=== PATIENT | female | born 1960 | race Caucasian/White ===

== ENCOUNTER 2024-04-06 17:09 | Emergency (ER) | payer OTHER, SELFPAY ==
--- NOTE | ~2024-04-06 | US_ITS ---
EXAMINATION: US TRIPLEX LOWER EXTREMITY, RIGHT CLINICAL INFORMATION: Pain and swelling of right leg COMPARISON: None available. TECHNIQUE: Color-flow triplex imaging with spectral analysis and compression Doppler were performed on the right lower extremity. FINDINGS: Respiratory variation, normal compression and augmented flow are noted throughout the right lower extremity. The visualized common femoral vein, superficial femoral vein, profunda femoral vein, popliteal vein and midcalf peroneal and posterior tibial venous segments show no evidence of deep venous thrombosis. There is no Lewis's cyst. US/US venous duplex LE RT IMPRESSION: No evidence of deep venous thrombosis involving the right lower extremity. Electronically signed by: Best Mendoza MD 04/06/2024 08:22 PM EDT
[2024-04-06 17:22] VITALS: BP 131/79; PULSE 72; RESP 18; TEMP 37.3; O2SAT 97; BMI 25.1
--- NOTE | 2024-04-06 17:22 | ED.GENADULT ---
HPI - General Adult General Chief complaint: General Medical Stated complaint: ? clot right leg swelling/redness Time Seen by Provider: 04/06/24 19:54 Source: patient, RN notes reviewed and old records reviewed Mode of arrival: ambulatory Limitations: no limitations History of Present Illness ED Provider: Tre LOPEZ narrative: 63-year-old female presents for evaluation of right leg swelling. Patient reports she has noticed pain to the area since Tuesday. The pain started the day after she [place] ? She denies any specific injury. 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 Related Data Allergies Allergy/AdvReac Type Severity Reaction Status Date / Time No Known Allergies Allergy Verified 04/06/24 17:25 Review of Systems Constitutional: Constitutional: Denies body ache(s), Denies chills, Denies fever(s) and Denies frequent falls Eyes: Eyes: Denies blurry vision ENT: Denies vertigo and Denies dizziness Cardiovascular: Cardiovascular: Denies chest pain, Reports leg edema and Denies dyspnea Respiratory: Respiratory: Denies cough and Denies dyspnea Gastrointestinal: Gastrointestinal: Denies abdominal pain, Denies nausea and Denies vomiting Musculoskeletal: Musculoskeletal: Denies back pain Integumentary/Breasts: Skin/Breast: Denies erythema and Denies rash Neurologic: Denies vertigo, Denies dizziness and Denies frequent falls [facility] Social History Social History (System 04/12/23 @ 15:19 by Ivonne Calderón) Alcohol intake: current Alcohol intake frequency: 0-2 drinks per day Smoked in Last 30 Days: No Use of substances other than those prescribed or required for medical reasons: No Advance Directives: No Advance Directives Information Provided: No Do you have a plan to hurt others: No Plan Physical Exam ED Vital Signs: Vital Signs - 24 hr 04/06/24 17:22 04/06/24 20:11 Temperature 99.2 F 99.2 F Pulse Rate 72 72 Respiratory Rate 18 18 Blood Pressure 131/79 136/78 Pulse Oximetry 97 98 Oxygen Delivery Method Room Air Room Air BMI result Body Mass Index 25.1 Const General: healthy appearing, comfortable, no acute distress, alert and awake Nutritional Appearance: well nourished Orientation/consciousness: patient oriented x3 HENMT Head: Yes normocephalic and Yes atraumatic Eyes Eyelids: Yes eyelids normal Conjunctivae: conjunctivae normal Sclerae: sclerae normal Corneas: corneas normal Pupils: Equal, round and reactive pupils present EOM: EOMs intact bilaterally Neck Neck: Yes full ROM Resp Effort & Inspection: normal respiratory effort, able to speak in complete sentences and not labored Skin General skin exam: elasticity normal Neuro General: patient oriented x3 Cranial nerves: Yes Equal, round and reactive pupils present and Yes Bilaterally intact EOM present Cognition (Neuro): normal cognition Extrem Other: Patient has 1 to 2+ nonpitting edema to the right lower extremity. There is no significant erythema, no wounds, no rashes. The right lower extremity is warm to palpation. Distal sensation and capillary refill intact. DP and PT pulses 2+ and equal Course Course Course Narrative: This is a rapid medical exam performed by Marshall Gale NP: Additional HPI, ROS, PE not included below will be deferred to primary provider. Patient is a 63-year-old female presenting with complaint of right calf pain and swelling. Denies chest pain or dyspnea. Referred by to r/o DVT. Plan: labs, U/S Medical Decision Making Medical Decision Making [facility] Narrative: 63-year-old female presents for evaluation of right leg swelling. She denies any trauma, she has no history of DVT or PE, no rashes, redness to suggest infectious cause. She had labs ordered that did not show any significant abnormalities, there was no white count or left shift. No significant chemistry abnormalities to explain her swelling. Ultrasound is negative for DVT on right. At this time, musculoskeletal injuries the most likely cause of her swelling. She will be discharged with instructions to elevate the leg and follow up with her primary doctor Differential Diagnosis Differential Diagnoses: The differential diagnosis associated with the presentation includes Right leg swelling DVT Cellulitis Peripheral edema Hypovolemia Lab Data [facility] Lab Attestation statement: I reviewed the patient's lab results. See above 04/06/24 17:39 04/06/24 17:39 Labs: Lab Results 04/06/24 Range/Units 17:39 WBC 6.0 (4.8-10.8) X10*3/uL RBC 4.42 (4.20-5.50) X10*6/uL Hgb 13.9 (12.0-16.0) g/dl Hct 40.0 (37.0-47.0) % MCV 90.5 (80.0-98.0) fL MCH 31.4 (27.0-33.0) pg MCHC 34.8 (31.0-35.0) g/dl RDW 12.6 (11.0-16.0) % Plt Count 217 (160-400) X10*3/uL MPV 11.1 (9.4-12.3) fL Immature Gran % (Auto) 0.2 (0.0-0.4) % Neut % (Auto) 63.5 (45-73) % Lymph % (Auto) 22.5 (20-40) % Greer % (Auto) 12.8 H (2-11) % Eos % (Auto) 0.3 (0-4) % Baso % (Auto) 0.7 (0-2) % Lymph # (Auto) 1.4 (1.2-4.9) X10*3/uL Greer # (Auto) 0.8 (0.1-1.2) X10*3/uL Eos # (Auto) 0.0 (0.0-0.4) X10*3/uL Baso # (Auto) 0.0 (0.0-0.2) X10*3/uL Abs Immat Gran (auto) 0.01 (0.00-0.03) X10*3/uL Absolute Neuts (auto) 3.8 (2.0-8.3) x10*3/uL Absolute Nucleated RBC 0.000 (0.0-0.012) X10*3/uL Nucleated RBC % (auto) 0.0 (0.0-0.2) /100WBC PT 10.5 L (10.9-12.4) SEC INR 0.9 (0.9-1.1) Sodium 141 (135-145) mmol/L Potassium 4.1 (3.3-5.1) mmol/L Chloride 104 (96-108) mmol/L Carbon Dioxide 28 (22-29) mmol/L Anion Gap 13 (12-20) BUN 10 (9-16) mg/dL Creatinine 0.69 (0.5-1.4) mg/dL Estim Creat Clear Calc 74.2 Estimated GFR > 60 Random Glucose 117 H (60-115) mg/dL Calcium 10.1 (8.4-10.2) mg/dL Total Bilirubin 0.3 (0.0-1.0) mg/dL AST 23 (5-31) U/L ALT 19 (0-31) U/L Alkaline Phosphatase 47 (39-117) U/L Total Protein 7.4 (6.5-8.0) g/dL Albumin 4.4 (3.5-5.0) g/dL Discharge Plan Discharge Clinical Impression: Localized swelling of right lower leg Patient Disposition: Home, Self-Care Instructions: Leg Edema (ED) Additional Instructions: Your workup in the ER today was reassuring. This includes your blood work. There does not appear to be any signs of infection Elevate your leg above your heart while resting Your ultrasound does not show any evidence of blood clots Follow-up with your primary doctor, return for new or worsening symptoms Interventions: ED Discharge Assessment Last Done: 04/06/24 20:11 Print Language: [place] Islander
--- OUTSIDE RECORDS SUMMARY | 2024-04-06 17:36 | XMS_ITS | Continuity of Care Document ---
Author Organization [facility] Address [address] [place] [address]- Care Team Providers Care Furniture Arranger Name Role Phone Nader DESIR, Yolanda Orellana Primary Care Physician Encounter [facility] Date(s): 03/18/23 - 05/12/23 [facility] [address] [place] [address]- Attending Physician: Eliza Powell MD Admitting Physician: Eliza Powell MD Referring Physician: Nader DESIR, Yolanda Orellana Allergies, Adverse Reactions, Alerts No Known Medication Allergies Substance Reaction Severity Status Other Food Allergy 1 swelling face Active 1processed meats( ie: ham, bologna) Immunizations Given and Recorded Vaccine Date Status Refusal Reason tetanus/diphtheria/pertussis, acel(Tdap) 03/10/23 Given tetanus/diphtheria/pertussis, acel(Tdap) 09/02/16 Given SARS-CoV-2 (COVID-19) mRNA-1273 vaccine 05/21/21 R ecorded SARS-CoV-2 (COVID-19) mRNA-1273 vaccine 11/03/20 R ecorded SARS-CoV-2 (COVID-19) mRNA-1273 vaccine 10/06/20 R ecorded Medications amLODIPine 5 mg oral tablet 1 tablet, By Mouth, Daily, # 30 tablet, 6 Refills, Maintenance, 04/15/23 7:52:00 EDT, [facility] #[id number], 162, cm, 04/14/23 13:29:00 EDT, Height, 65.5, kg, 03/28/23 8:15:00 EDT, Dry Weight Start Date: 04/15/23 Status: Ordered rosuvastatin 5 mg oral tablet 1 tablet, By Mouth, Daily, # 30 tablet, 6 Refills, Maintenance, 05/10/23 14:04:00 EST, [facility] #[id number], 161, cm, 05/10/23 9:02:00 EST, Height, 65.3, kg, 05/10/23 9:02:00 EST, Dry Weight Start Date: 05/10/23 Status: Ordered Problem List Condition Confirmation Course Effective Dates Status H ealth Status Informant Allergic reaction to food Confirmed Active Hyperlipidemia Confirmed Active Hypertension Confirmed Active 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
--- OUTSIDE RECORDS SUMMARY | 2024-04-06 17:36 | XMS_ITS | Continuity of Care Document ---
Author Organization [facility] Address [address] [place] [address] Dr [address] [place] [address]- Care Team Providers Care Rn Cardiac Name Role Phone Nader DESIR, Yolanda Orellana Primary Care Physician [phone] [place] [facility] Date(s): 04/05/23 - 04/12/23 [facility] [address] [place] [address]- Attending Physician: Fred Farnsworth MD Allergies, Adverse Reactions, Alerts No Known Medication [...] ecorded Medications amLODIPine 5 mg oral tablet 5 mg, 1, tablet, By Mouth, Daily, # 30 tablet, Refills 0, Tot. Refills 0, Maintenance, 03/10/23 7:36:00 EDT, Route to Pharmacy Electronically, [facility] #[id number], Partial fill upon patient request if the prescription is for a schedule II opio... Start Date: 03/10/23 Status: Ordered Crestor 5 mg oral tablet 1 tablet = 5 mg, By Mouth, Daily, # 30 tablet, 1 Refills, Maintenance, 03/10/23 7:39:00 EDT, [id number], Partial fill upon patient request if the prescription is for a schedule II opioid drug., 162, cm, 03/10/23 7:32:00 EDT, Height Start Date: 03/10/23 Status: Ordered Problem List Condition Confirmation Course [...] Personnel Name: Nader DESIR, Yolanda Orellana Position: [facility] PCO Associate Professional Member Role: PCP Address: Address: [address] [place] [address]- Care Team Related Persons Name: YING LUIS Address: home [address] [place] [address] Name: FABRIZIO LUIS Address: home [address] [place] [address]
--- OUTSIDE RECORDS SUMMARY | 2024-04-06 17:36 | XMS_ITS | Continuity of Care Document ---
Author Organization [facility] Address [address] [place] [address]- Care Team Providers Care Can Piler Name Role Phone Nader DESIR, Yolanda Orellana Primary Care Physician [phone] Encounter [facility] Date(s): 05/10/23 - 06/09/23 [facility] [address] [place] [address]- Allergies, Adverse Reactions, Alerts No Known Medication [...] tablet, 6 Refills, Maintenance, 04/15/23 7:52:00 EDT, [facility] #[id number], 162, cm, 04/14/23 13:29:00 EDT, Height, 65.5, kg, 03/28/23 8:15:00 EDT, Dry Weight Start Date: 04/15/23 Status: Ordered rosuvastatin 5 mg oral tablet 1 tablet, By Mouth, Daily, # 30 tablet, 6 Refills, Maintenance, 05/10/23 14:04:00 EST, [facility] #[id number], 161, cm, 05/10/23 9:02:00 EST, Height, 65.3, [...] Personnel Name: Nader DESIR, Yolanda Orellana Position: [facility] PCO Associate Professional Member Role: PCP Address: Address: [address] [place] [address]- Care Team Related Persons Name: YING LUIS Address: home [address] [place] [address] Name: FABRIZIO LUIS Address: home [address] [place] [address]
--- OUTSIDE RECORDS SUMMARY | 2024-04-06 17:36 | XMS_ITS | Continuity of Care Document ---
Author Organization [facility] Address [address] [place] [address]- Care Team Providers Care Drafter Electromechanical Name Role Phone Nader DESIR, Yolanda Orellana Primary Care Physician Encounter [facility] [place] Date(s): 03/03/23 - 09/02/23 [facility] [address] [place] [id number] Discharge Disposition: A-D/C Home Attending Physician: Keaton De Los Santos DO Admitting Physician: Keaton De Los Santos DO Referring Physician: Eliza Powell MD Allergies, Adverse Reactions, Alerts No Known [...] tablet, 6 Refills, Maintenance, 04/15/23 7:52:00 EDT, [facility] #[id number], 162, cm, 04/14/23 13:29:00 EDT, Height, 65.5, kg, 03/28/23 8:15:00 EDT, Dry Weight Start Date: 04/15/23 Status: Ordered pravastatin 20 mg oral tablet 20 mg, 1, tablet, By Mouth, Daily, # 30 tablet, Refills 6, Tot. Refills 6, Maintenance, 06/30/23 7:40:00 EST, Route to Pharmacy Electronically, [facility] #[id number], Partial fill upon patient request if the prescription is for a schedule II opi... 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 Tobacco abuse Confirmed Active Vital Signs Most recent to oldest [Reference Range]: 1 Height 161 cm (05/10/23 9:02 AM) Weight 65.3 kg (05/10/23 9:02 AM) Oxygen Saturation [94-100 %] 100 % (05/10/23 9:02 AM) Pulse Rate [55-90 bpm] 55 bpm (05/10/23 9:02 AM) Body Mass Index [18.5-24.99 kg/m2] 25.19 kg/m2 *H* (05/10/23 9:02 AM) Blood Pressure [90-138/55-84 mm Hg] 153/ 98mm Hg *H* (05/10/23 9:02 AM) Temperature [96.8-100.4 DegF] 97.7 DegF (05/10/23 9:02 AM) Mode of Delivery (Oxygen) Room air (05/10/23 9:02 AM) Blood pressure sites Arm, right (05/10/23 9:02 AM) Temperature Route Oral (05/10/23 9:02 AM) Dry Weight 65.3 kg (05/10/23 9:02 AM) Weight Obtained Via Standing scale (05/10/23 9:02 AM) Dry Weight Obtained Via Standing scale (05/10/23 9:02 AM) Social History Social History Type Response Smoking Status Former smoker, quit more than 30 days ago; Other: quit 07/2022; entered on: 04/11/23 Sex Note * Annia Acevedo: PERFORM, SIGN, VERIFY Event Display: Patient Education/Instruction Authored Date: [id number] [facility] *Heme/Onc Adult Clinical Summary Name ESTHER HA Age 62 Years 1960 PCP Yolanda Doe NP PCP Visit Date 03/03/2023 13:59:00 Additional Instructions: Scheduled Appointments?? Future Appointments ?*[facility] [address],??[address] ?Phone:??--?Fax:??-- ?Appt. Date:??05/26/2023?8:40 AM ?Scheduled Provider:??Nicole CLARK , Aleah Dia ?*[facility] [address] ?Phone:??--?Fax:??-- ?Appt. Date:??06/30/2023?7:30 AM ?Scheduled Provider:??Yolanda Doe NP Follow-Up Instructions ?? With: Address: When: Keatonsonam De Los Santos [address] [place] [address] Hem/[place], [place] [id number] Business (1) In 379 days 05/23/2024 Diagnosis Medications: Please continue your medications until treatment is completed or stopped by your provider. Discuss any questions related to medications with your provider. Medications to Continue with No Changes These medications were not printed or sent to your pharmacy Amlodipine (amLODIPine 5 mg oral tablet) 1 tab(s) Oral Daily. Refills: 6. Next Dose: Rosuvastatin (Crestor 5 mg oral tablet) 1 tab(s) Oral Daily. Refills: 1. Next Dose: Allergy Info:?? No Known Medication Allergies; Other Food Allergy Medications Given This Visit Future Orders ?No future orders Vital Signs Height 161 cm Weight 65.3 kg BMI 25.19 kg/m2 Blood Pressure 153 mm Hg/98 mm Hg Temperature 97.7 DegF Pulse Rate 55 bpm Respiratory Rate 02 Sat Mode of Delivery 100 %/Room air You can now view a summary of your hospital visit from the comfort of your home through a free online portal called [employer]. [employer] is a website that allows you to securely view your medical information including discharge summary, medications and follow-up visits. ??You can alsosend a secure electronic message to your doctor???s office to request appointments, renew medications or just ask a question. You can enroll at [email or web address] or register during your next office visit. Disclaimer:?? The information provided is of a general nature and is intended to be used in conjunction with the recommendations and advice of your health care practitioner. ??Every effort has been made to ensure that the information provided is accurate and complete at the time it is provided to you however, as your needs change, or, as new ??information becomes available, different or additional instructions may be required. If you have questions, please consult with your primary care provider or pharmacist, as appropriate. ??This information is not intended to serve as substitution for assessment and evaluation by a qualified health care provider. If you do not have a primary care provider, you may find a [facility] provider by calling [facility] at [phone]. [facility], in keeping with [facility] guidance, no longer requires face masks for staff, patientsor visitors in most situations. Similar to time spent indoors at other locations, there is the chance that you were exposed to respiratory viruses during your time with us (such as flu or COVID-19).? If you develop symptoms concerning for a viral respiratory infection, please seek testing (and treatment if indicated) from your medical provider or home test kit. For information about the plan of care including goals and instructions for your diagnosis, please see the patient education orders section of this document. Patient Education Materials?? The content of this educational material or handout may have been modified, supplemented, or adapted from its original content and format to support your individualized medical care. Patient Care team information Care Team Personnel Name: Nader DESIR, Yolanda Orellana Position: [facility] PCO Associate Professional Member Role: PCP Address: Address: [address] [place] [address]- Care Team Related Persons Name: YING LUIS Address: [address] [place] [address] Name: FABRIZIO LUIS Address: home [address] [place] [id number]
--- OUTSIDE RECORDS SUMMARY | 2024-04-06 17:36 | XMS_ITS | Continuity of Care Document ---
Author Organization [facility] Address [address] [place] [address]- Care Team Providers Care Technician Preventative Medicine Name Role Phone Nader DESIR, Yolanda Orellana Primary Care Physician [phone] [place] [facility] [place] 11/09/23 - 12/09/23 [facility] [address] [place] [address]- Allergies, Adverse Reactions, Alerts No Known Medication [...] Daily, # 30 tablet, 6 Refills, Maintenance, 11/09/23 6:37:00 EDT, [facility] #[id number], 163, cm, 09/22/23 9:43:00 EDT, Height, 66.4, kg, 08/08/23 13:18:00 EST, Dry Weight Start Date: 11/09/23 Status: Ordered pravastatin 20 mg oral tablet 20 mg, 1, tablet, By Mouth, Daily, # 30 tablet, Refills 6, Tot. Refills 6, Maintenance, 11/09/23 6:37:00 EDT, Route to Pharmacy Electronically, [facility] #[id number], Partial fill upon patient request if the prescription is for a schedule II opi... Start Date: 11/09/23 Status: Ordered Problem List Condition Confirmation Course [...] Personnel Name: Nader DESIR, Yolanda Orellana Position: [facility] PCO Associate Professional Member Role: PCP Address: Address: [address] [place] [id number]- Care Team Related Persons Name: YING LUIS Address: [address] [place] [address] Name: FABRIZIO LUIS Address: home [address] [place] [address]
--- OUTSIDE RECORDS SUMMARY | 2024-04-06 17:36 | XMS_ITS | Continuity of Care Document ---
Author Organization [facility] Address [address] [place] [address] [address] [place] [address]- Care Team Providers Care Associate Counsel Name Role Phone Nader DESIR, Yolanda Orellana Primary Care Physician Encounter [facility] Date(s): 09/22/23 - 09/29/23 [facility] [address] [place] [id number] Attending Physician: Aleah Seo Referring Physician: Nader DESIR, Yolanda Orellana Allergies, [...] tablet, 6 Refills, Maintenance, 04/15/23 7:52:00 EDT, [facility] #[id number], 162, cm, 04/14/23 13:29:00 EDT, Height, 65.5, kg, 03/28/23 8:15:00 EDT, Dry Weight Start Date: 04/15/23 Status: Ordered pravastatin 20 mg oral tablet 20 mg, 1, tablet, By Mouth, Daily, # 30 tablet, Refills 6, Tot. Refills 6, Maintenance, 06/30/23 7:40:00 EST, Route to Pharmacy Electronically, [facility] #[id number], Partial fill upon patient request if the [...] recent to oldest [Reference Range]: 1 Height 163 cm (09/22/23 9:43 AM) Weight 66.4 kg (09/22/23 9:43 AM) Body Mass Index [18.5-24.99 kg/m2] 24.99 kg/m2 (09/22/23 9:43 AM) Social History Social History Type Response Smoking Status Former smoker, quit more than 30 days ago; Other: quit 07/2022; entered on: 04/11/23 Sex Patient Care team information Care Team Personnel Name: Nader DESIR, Yolanda Orellana Position: [facility] PCO Associate Professional Member Role: PCP Address: Address: [address] [place] [address]- Care Team Related Persons Name: YING LUIS Address: [address] [place] [address] Name: FABRIZIO LUIS Address: home [address] [place] [address]
--- OUTSIDE RECORDS SUMMARY | 2024-04-06 17:36 | XMS_ITS | Continuity of Care Document ---
Author Organization [facility] [place] Address [address] [place] [address]- Care Team Providers Care Yield Loss Inspector Name Role Phone Nader DESIR, Yolanda Orellana Primary Care Physician [phone] [place] [facility] [place]23 - 03/29/23 [facility] [address] [place] [address]- Encounter Diagnosis Hypertension(Discharge Diagnosis) - 03/22/23 Hyperlipidemia(Discharge Diagnosis) - 03/22/23 Attending Physician: Nader DESIR, Yolanda Orellana Referring Physician: Bang Araujo MD Allergies, Adverse Reactions, Alerts No Known [...] (COVID-19) mRNA-1273 vaccine 10/06/20 R ecorded Medications acetaminophen 325 mg oral tablet 650 mg, By Mouth, Every 6 hours, not to exceed 4000 mg/day, # 100 tablet, Refills 0, Tot. Refills 0, Acute 04/05/23 14:45:00 EDT, 03/28/23 14:44:00 EDT, Route to Pharmacy Electronically, [facility] #[id number], Partial fill upon patient request i... Start Date: 03/28/23 Stop Date: 04/05/23 Status: Ordered amLODIPine 5 mg oral tablet 5 mg, 1, tablet, By Mouth, Daily, # 30 tablet, Refills 0, Tot. Refills 0, Maintenance, 03/10/23 7:36:00 EDT, Route to Pharmacy Electronically, [facility] #[id number], Partial fill upon patient request if the prescription is for a schedule II opio... Start Date: 03/10/23 Status: Ordered cephalexin monohydrate 500 mg oral capsule 1 capsule = 500 mg, By Mouth, 4 times a day, for 7 days, # 28 capsule, 0 Refills, Acute 04/04/23 14:44:00 EDT, 03/28/23 14:44:00 EDT, Capsule, [facility] #[id number], Partial fill upon patient request if the prescription is for a schedule II opio... Start Date: 03/28/23 Stop Date: 04/04/23 Status: Ordered Crestor 5 mg oral tablet 1 tablet = 5 mg, By Mouth, Daily, # 30 tablet, 1 Refills, Maintenance, 03/10/23 7:39:00 EDT, [facility] #[id number], Partial fill upon patient request if the prescription is for a schedule II opioid drug., 162, cm, 03/10/23 7:32:00 EDT, Height Start Date: 03/10/23 Status: Ordered diazepam 2 mg oral tablet 2 mg, By Mouth, Every 6 hours, PRN, # 20 tablet, Refills 0, Tot. Refills 0, Acute 04/03/23 14:46:00EDT, Spasm, 03/28/23 14:44:00 EDT, Route to Pharmacy Electronically, [facility] #[id number], Partial fill upon patient request if the prescription... Start Date: 03/28/23 Stop Date: 04/03/23 Status: Ordered ibuprofen 600 mg oral tablet 600 mg, By Mouth, Every 6 hours, not to exceed 3200 mg/day, # 50 tablet, Refills 0, Tot. Refills 0,Acute 04/06/23 14:45:00 EDT, 03/28/23 14:44:00 EDT, Route to Pharmacy Electronically, [facility] #[id number], Partial fill upon patient request if... Start Date: 03/28/23 Stop Date: 04/06/23 Status: Ordered oxyCODONE 5 mg oral tablet 5 mg, By Mouth, Every 6 hours, PRN, # 20 tablet, Refills 0, Tot. Refills 0, Acute 04/04/23 14:46:00EDT, Pain , Moderate, 03/28/23 14:44:00 EDT, Route to Pharmacy Electronically, [facility]#[id number], Partial fill upon patient request if the pr... 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 Tobacco abuse Confirmed Active Diagnosis Diagnosis Type Effective Dates Health Status Cl inical Service Informant Hypertension Discharge Diagnosis 03/22/23 Hyperlipidemia Discharge Diagnosis 03/22/23 Vital Signs Most recent to oldest [Reference Range]: 1 2 Height 162 cm (03/22/23 7:37 AM) 162 cm (03/22/23 7:22 AM) Weight 64.9 kg (03/22/23 7:22 AM) Oxygen Saturation [94-100 %] 100 % (03/22/23 7:22 AM) Pulse Rate [55-90 bpm] 55 bpm (03/22/23 7:22 AM) Body Mass Index [18.5-24.99 kg/m2] 24.73 kg/m2 (03/22/23 7:22 AM) Blood Pressure [90-138/55-84 mm Hg] 132/ 84mm Hg (03/22/23 7:37 AM) 137/85mm Hg (03/22/23 7:22 AM) Blood pressure sites Arm, left (03/22/23 7:22 AM) Weight Obtained Via Standing scale (03/22/23 7:22 AM) Social History Social History Type Response Smoking Status Current every day riana zhong entered on: 05/11/16 Sex Note * Angelica Grover: PERFORM, SIGN, VERIFY Event Display: Patient Education/Instruction Authored Date: [id number] [facility] *BMP Lizbeth Velasquez Clinical Summary Name ESTHER HA Age 62 Years 1960 PCP Nader DESIR, Yolanda Orellana PCP Visit Date 03/22/2023 07:18:00 Additional Instructions: Scheduled Appointments?? Future Appointments ?[facility] ?[address]??[place],??[place],??[address] ?Phone:??[phone]?Fax:??-- ?Appt. Date:??03/28/2023?9:00 AM ?Scheduled Provider:??[facility] Rm [facility] ?[facility] ?Phone:??--?Fax:??-- ?Appt. Date:??03/28/2023?10:00 AM ?Scheduled Provider:??Sherry PAIZ, Eliza Blanco ?*[facility] ?Phone:??--?Fax:??-- ?Appt. Date:??04/05/2023?10:00 AM ?Scheduled Provider:??Daja PAZI , Fred Hartmann ?*[facility] [address]??[place],??[place],??[address] ?Phone:??--?Fax:??-- ?Appt. Date:??04/11/2023?11:20 AM ?Scheduled Provider:??Cee Mims ?*[facility] ?[address]??[place],??[place],??[address] ?Phone:??--?Fax:??-- ?Appt. Date:??04/14/2023?1:20 PM ?Scheduled Provider:??Eliza Powell MD ?*[facility] [address],??[place],??[address] ?Phone:??--?Fax:??-- ?Appt. Date:??04/18/2023?11:20 AM ?Scheduled Provider:??Cee Mims ?*[facility] [address],??[place],??[address] ?Phone:??--?Fax:??-- ?Appt. Date:??04/25/2023?10:20 AM ?Scheduled Provider:??Cee Mims ?*[facility] [address],??[place],??[address] ?Phone:??--?Fax:??-- ?Appt. Date:??05/13/2023?1:00 PM ?Scheduled Provider:??Daja PAIZ , Fred Hartmann Follow-Up Instructions ?? With: Address: When: Nader DESIR, Yolanda Orellana [address] [place] [phone] In 3 months Diagnosis Hyperlipidemia, unspecified; Essential (primary) hypertension Medications: Please continue your medications until treatment is completed or stopped by your provider. Discuss any questions related to medications with your provider. Medications to Continue with No Changes These medications were not printed or sent to your pharmacy Amlodipine (amLODIPine 5 mg oral tablet) 1 tab(s) Oral Daily. Refills: 0. Next Dose: Rosuvastatin (Crestor 5 mg oral tablet) 1 tab(s) Oral Daily. Refills: 1. Next Dose: Allergy Info:?? No Known Medication Allergies Medications Given This Visit Future Orders ?No future orders Vital Signs Height 162 cm Weight 64.9 kg BMI 24.73 kg/m2 Blood Pressure 132 mm Hg/84 mm Hg Temperature Pulse Rate 55 bpm Respiratory Rate 02 Sat Mode of Delivery 100 %/ You can now view a summary of your hospital visit from the comfort of your home through a free online portal called [employer]. [employer] is a website that allows you to securely view your medical information including discharge summary, medications and follow-up visits. ??You can alsosend a secure electronic message to your doctor???s office to request appointments, renew medications or just ask a question. You can enroll at [email or web address] or register during your next office visit. [...] [facility] provider by calling [facility] [employer] Link at [phone]. [facility], in keeping with [facility] guidance, no longer requires face [...] Associate Professional Member Role: PCP Address: Address: [address] [place] [address]- Care Team Related Persons Name: YING LUIS Address: home [address] [place] [address] Name: FABRIZIO LUIS Address: home [address] [place] [address]
--- OUTSIDE RECORDS SUMMARY | 2024-04-06 17:36 | XMS_ITS | Continuity of Care Document ---
Author Organization [facility] Address [address] [place] [address] [address] [place] [address]- Care Team Providers Care Gas Station Supervisor Name Role Phone Nader DESIR, Yolanda Orellana Primary Care Physician [facility] Date(s): 07/14/23 - 08/13/23 [facility] [address] [place], [place] [address] Allergies, Adverse Reactions, Alerts No Known Medication [...] acetaminophen 325 mg oral tablet 650 mg, 2, tablet, By Mouth, Every 6 hours, PRN, for 7 days, not to exceed 4000 mg/day, # 50 tablet, Refills 2, Tot. Refills 2, Acute 08/29/23 16:16:00 EDT, as needed for fever, 08/08/23 16:16:00 EST, Route to Pharmacy Electronically, [facility] Start Date: 08/08/23 Stop Date: 08/29/23 Status: Ordered amLODIPine 5 mg oral tablet 1 tablet, By Mouth, Daily, # 30 tablet, 6 Refills, Maintenance, 04/15/23 7:52:00 EDT, [facility] #[id number], 162, cm, 04/14/23 13:29:00 EDT, Height, 65.5, kg, 03/28/23 8:15:00 EDT, Dry Weight Start Date: 04/15/23 Status: Ordered ibuprofen 600 mg oral tablet 600 mg, 1, tablet, By Mouth, Every 6 hours, PRN, for 7 days, not to exceed 3200 mg/day with food ormilk, # 50 tablet, Refills 2, Tot. Refills 2, Acute 08/29/23 16:16:00 EDT, for pain, 08/08/23 16:16:00 EST, Route to Pharmacy Electronically, [facility] Start Date: 08/08/23 Stop Date: 08/29/23 Status: Ordered pravastatin 20 mg oral tablet 20 mg, 1, tablet, By Mouth, Daily, # 30 tablet, Refills 6, Tot. Refills 6, Maintenance, 06/30/23 7:40:00 EST, Route to Pharmacy Electronically, [facility] #[id number], Partial fill upon patient request if the [...] Personnel Name: Nader DESIR, Yolanda Orellana Position: [facility] PCO Associate Professional Member Role: PCP Address: Address: [address] [place] [address]- Care Team Related Persons Name: YING LUSI Address: home [address] [place] [address] Name: FABRIZIO LUIS Address: home [address] [place] [address]
--- OUTSIDE RECORDS SUMMARY | 2024-04-06 17:36 | XMS_ITS | Continuity of Care Document ---
Author Organization [facility] Address [address] [place] [address]- Care Team Providers Care Rn Social Work Name Role Phone Nader DESIR, Yolanda Orellana Primary Care Physician Encounter [facility] [place] Date(s): 12/30/23 - 01/29/24 [facility] [address] [place] [id number] Allergies, Adverse Reactions, Alerts No Known [...] tablet, 6 Refills, Maintenance, 11/09/23 6:37:00 EDT, [facility] #[id number], 163, cm, 09/22/23 9:43:00 EDT, Height, 66.4, kg, 08/08/23 13:18:00 EST, Dry Weight Start Date: 11/09/23 Status: Ordered pravastatin 20 mg oral tablet 20 mg, 1, tablet, By Mouth, Daily, # 30 tablet, Refills 6, Tot. Refills 6, Maintenance, 11/09/23 6:37:00 EDT, Route to Pharmacy Electronically, [facility] #[id number], Partial fill upon patient request if the [...] Personnel Name: Nader DESIR, Yolanda Orellana Position: [facility] PCO Associate Professional Member Role: PCP Address: Address: [address] [place] [address]- Care Team Related Persons Name: YING LUIS Address: home [address] [place] [address] Name: FABRIZIO LUIS Address: home [address] [place] [address]
--- OUTSIDE RECORDS SUMMARY | 2024-04-06 17:36 | XMS_ITS | Continuity of Care Document ---
Author Organization [facility] Address [address] [place] [address] [address] [place] [address]- Care Team Providers Care Waste Transportation Technician Name Role Phone Nader DESIR, Yolanda Orellana Primary Care Physician [phone] Encounter [facility] [place] Date(s): 08/11/23 - 08/18/23 [facility] [address] [place] [address] [address] [place], [place] [address] Attending Physician: Aleah Seo Allergies, Adverse Reactions, Alerts No Known Medication [...] 08/08/23 16:16:00 EST, Route to Pharmacy Electronically, [facility] Start Date: 08/08/23 Stop Date: 08/29/23 Status: Ordered amLODIPine 5 mg oral tablet 1 tablet, By Mouth, Daily, # 30 tablet, 6 Refills, Maintenance, 04/15/23 7:52:00 EDT, [facility] #[id number], 162, cm, 04/14/23 13:29:00 EDT, Height, 65.5, [...] 08/08/23 16:16:00 EST, Route to Pharmacy Electronically, [facility]... Start Date: 08/08/23 Stop Date: 08/29/23 Status: Ordered pravastatin 20 mg oral tablet 20 mg, 1, tablet, By Mouth, Daily, # 30 tablet, Refills 6, Tot. Refills 6, Maintenance, 06/30/23 7:40:00 EST, Route to Pharmacy Electronically, [facility] #[id number], Partial fill upon patient request if the [...] oldest [Reference Range]: 1 Height 163 cm (08/11/23 10:31 AM) Weight 66.8 kg (08/11/23 10:31 AM) Body Mass Index [18.5-24.99 kg/m2] 25.14 kg/m2 *H* (08/11/23 10:31 AM) Social History Social History Type Response Smoking Status Former smoker, quit more than 30 days ago; Other: quit 07/2022; entered on: 04/11/23 Sex Patient Care team information Care Team Personnel Name: Nader DESIR, Yolanda Orellana Position: [facility] PCO Associate Professional Member Role: PCP Address: Address: [address] [place] [address]- Care Team Related Persons Name: YING LUIS Address: home [address] [place] [address] Name: FABRIZIO LUIS Address: home [address] [place] [address]
--- OUTSIDE RECORDS SUMMARY | 2024-04-06 17:36 | XMS_ITS | Continuity of Care Document ---
Author Organization [facility] [place] Address [address] [place] [address]- Care Team Providers Care Roofer Metal Name Role Phone Nader DESIR, Yolanda Orellana Primary Care Physician [place] [facility] [place]10[place]23 - 03/17/23 [facility] Adult [address] [place] [address]- Encounter Diagnosis Hyperlipidemia(Discharge Diagnosis) - 03/10/23 Hypertension(Discharge Diagnosis) - 03/10/23 Attending Physician: Not on Staff, Attending MD Allergies, Adverse Reactions, Alerts No Known Medication Allergies Immunizations Given and Recorded Vaccine Date Status [...] 03/10/23 7:36:00 EDT, Route to Pharmacy Electronically, [facility] #[id number], Partial fill upon patient request if the prescription is for a schedule II opio... Start Date: 03/10/23 Status: Ordered Crestor 5 mg oral tablet 1 tablet = 5 mg, By Mouth, Daily, # 30 tablet, 1 Refills, Maintenance, 03/10/23 7:39:00 EDT, [facility] #[id number], Partial fill upon patient request if the [...] Dates Health Status Cl inical Service Informant Hyperlipidemia Discharge Diagnosis 03/10/23 Hypertension Discharge Diagnosis 03/10/23 Vital Signs Most recent to oldest [Reference Range]: 1 2 3 Height 162 cm (03/10/23 7:42 AM) 162 cm (03/10/23 7:32 AM) 162 cm (03/10/23 7:24 AM) Weight 65.4 kg (03/10/23 7:24 AM) Oxygen Saturation [94-100 %] 100 % (03/10/23 7:24 AM) Pulse Rate [55-90 bpm] 56 bpm (03/10/23 7:24 AM) Body Mass Index [18.5-24.99 kg/m2] 24.92 kg/m2 (03/10/23 7:24 AM) Blood Pressure [90-138/55-84 mm Hg] 152/74mm Hg *H* (03/10/23 7:42 AM) 152/90mm Hg *H* (03/10/23 7:32 AM) 143/88mm Hg *H* (03/10/23 7:24 AM) Blood pressure sites Arm, left (03/10/23 7:32 AM) Arm, left (03/10/23 7:24 AM) Weight Obtained Via Standing scale (03/10/23 7:24 AM) Social History Social History Type Response Smoking Status Current every day riana zhong entered on: 05/11/16 Sex Note * Angelica Grover: PERFORM, SIGN, VERIFY Event Display: Patient Education/Instruction Authored Date: [id number] [facility] *VITA Velasquez Clinical Summary Name ESTHER HA Age 62 Years 1960 PCP Nader DESIR, Yolanda Orellana PCP Visit Date 03/10/2023 07:19:00 Additional Instructions: Scheduled Appointments?? Future Appointments ?No Future Appointments Scheduled Follow-Up Instructions ?? With: Address: When: Nader DESIR, Yolanda Orellana [address] [place] [address] 03/10/2023 12:00 AM Comments: 1.5 weeks Diagnosis Essential (primary) hypertension; Hyperlipidemia, unspecified Medications: Please continue your medications until treatment is completed or stopped by your provider. Discuss any questions related to medications with your provider. New Medications [facility][id number], [address] [place] [phone], [phone] Amlodipine (amLODIPine 5 mg oral tablet) 1 tab(s) Oral Daily. Refills: 0. Next Dose: Rosuvastatin (Crestor 5 mg oral tablet) 1 tab(s) Oral Daily. Refills: 1. Next Dose: Allergy Info:?? No Known Medication Allergies Medications Given This Visit Future Orders ?No future orders Vital Signs Height 162 cm Weight 65.4 kg BMI 24.92 kg/m2 Blood Pressure 152 mm Hg/74 mm Hg Temperature Pulse Rate 56 bpm Respiratory Rate 02 Sat Mode of Delivery 100 %/ You can now view a summary of your hospital visit from the comfort of your home through a free online portal called [employer]. [employer] is a website that allows you to securely view your medical information including discharge summary, medications and follow-up visits. ??You can alsosend a secure electronic message to your doctor???s office to request appointments, renew medications or just ask a question. You can enroll at [email or web address] or register during your next office visit. [...] primary care provider, you may find a [facility] provider by calling [facility] [employer] [facility] Link at [phone]. [facility], in keeping with [facility] guidance, no longer requires face masks for [...] Personnel Name: Nader DESIR, Yolanda Orellana Position: [facility] PCO Associate Professional Member Role: PCP Address: Address: [address] [place] [address] - Care Team Related Persons Name: YING LUIS Address: home [address] [place], [place] Name: FABRIZIO LUIS Address: home [address] [place] [address]
--- OUTSIDE RECORDS SUMMARY | 2024-04-06 17:36 | XMS_ITS | Continuity of Care Document ---
Author Organization [facility] Address [address] [place] [address] Dr [address] [place] [address]- Care Team Providers Care Inhalation Therapy Aide Name Role Phone Nader DESIR, Yolanda Orellana Primary Care Physician Encounter [facility] [place] Date(s): 06/06/23 - 06/13/23 [facility] [address] [place] [address]- Attending Physician: Not on Staff, Attending MD Referring Physician: Nader DESIR, Yolanda Orellana [...] tablet, 6 Refills, Maintenance, 04/15/23 7:52:00 EDT, [facility] #[id number], 162, cm, 04/14/23 13:29:00 EDT, Height, 65.5, kg, 03/28/23 8:15:00 EDT, Dry Weight Start Date: 04/15/23 Status: Ordered rosuvastatin 5 mg oral tablet 1 tablet, By Mouth, Daily, # 30 tablet, 6 Refills, Maintenance, 05/10/23 14:04:00 EST, [facility] #[id number], 161, cm, 05/10/23 9:02:00 EST, Height, 65.3, [...] oldest [Reference Range]: 1 Height 161 cm (06/06/23 1:23 PM) Weight 63.6 kg (06/06/23 1:23 PM) Body Mass Index [18.5-24.99 kg/m2] 24.54 kg/m2 (06/06/23 1:23 PM) Social History Social History Type Response Smoking Status Former smoker, quit more than 30 days ago; Other: quit 07/2022; entered on: 04/11/23 Sex Patient Care team information Care Team Personnel Name: Nader DESIR, Yolanda Orellana Position: [facility] PCO Associate Professional Member Role: PCP Address: Address: [address] [place] [address]- Care Team Related Persons Name: YING LUIS Address: home [address] [place] [address] Name: FABRIZIO LUIS Address: home [address] [place] [address]
--- OUTSIDE RECORDS SUMMARY | 2024-04-06 17:36 | XMS_ITS | Continuity of Care Document ---
Author Organization [facility] Address [address] [place] [address] Dr [address] [place] [address]- Care Team Providers Care Bursar Name Role Phone Nader DESIR, Yolanda Orellana Primary Care Physician [phone] [place] [facility] [place]23 - 04/29/23 [facility] [address] [place] [address] Drive [address] [place] [address]- Attending Physician: Fred Farnsworth MD Allergies, Adverse [...] tablet, 6 Refills, Maintenance, 04/15/23 7:52:00 EDT, [facility] #[id number], 162, cm, 04/14/23 13:29:00 EDT, Height, 65.5, kg, 03/28/23 8:15:00 EDT, Dry Weight Start Date: 04/15/23 Status: Ordered Crestor 5 mg oral tablet 1 tablet = 5 mg, By Mouth, Daily, # 30 tablet, 1 Refills, Maintenance, 03/10/23 7:39:00 EDT, [facility] #[id number], Partial fill upon patient request if the [...] recent to oldest [Reference Range]: 1 Height 162 cm (04/22/23 1:14 PM) Weight 65 kg (04/22/23 1:14 PM) Body Mass Index [18.5-24.99 kg/m2] 24.77 kg/m2 (04/22/23 1:14 PM) Social History Social History Type Response Smoking Status Former smoker, quit more than 30 days ago; Other: quit 07/2022; entered on: 04/11/23 Sex Patient Care team information Care Team Personnel Name: Nader DESIR, Yolanda Orellana Position: [facility] PCO Associate Professional Member Role: PCP Address: Address: [address] [place] [address]- Care Team Related Persons Name: YING LUIS Address: home [address] [place] [address] Name: FABRIZIO LUIS Address: home [address] [place] [address]
--- OUTSIDE RECORDS SUMMARY | 2024-04-06 17:36 | XMS_ITS | Continuity of Care Document ---
Author Organization [facility] Address [address] [place] [address] Dr [address] [place] [address]- Care Team Providers Care Mechanical Ordnance Assembler Name Role Phone Nader DESIR, Yolanda Orellana Primary Care Physician [place] [facility] [place]/23 - 06/02/23 [facility] Surgery [address] [place] [address] Drive [address] [place] [address]- Attending Physician: Aleah Seo Allergies, Adverse Reactions, [...] tablet, 6 Refills, Maintenance, 04/15/23 7:52:00 EDT, [facility] #[id number], 162, cm, 04/14/23 13:29:00 EDT, Height, 65.5, kg, 03/28/23 8:15:00 EDT, Dry Weight Start Date: 04/15/23 Status: Ordered rosuvastatin 5 mg oral tablet 1 tablet, By Mouth, Daily, # 30 tablet, 6 Refills, Maintenance, 05/10/23 14:04:00 EST, [facility] #[id number], 161, cm, 05/10/23 9:02:00 EST, Height, 65.3, [...] oldest [Reference Range]: 1 Height 161 cm (05/26/23 8:47 AM) Weight 65.3 kg (05/26/23 8:47 AM) Body Mass Index [18.5-24.99 kg/m2] 25.19 kg/m2 *H* (05/26/23 8:47 AM) Social History Social History Type Response Smoking Status Former smoker, quit more than 30 days ago; Other: quit 07/2022; entered on: 04/11/23 Sex Patient Care team information Care Team Personnel Name: Nader DESIR, Yolanda Orellana Position: [facility] PCO Associate Professional Member Role: PCP Address: Address: [address] [place] [address]- Care Team Related Persons Name: YING LUIS Address: home [address] [place] [address] Name: FABRIZIO LUIS Address: home [address] [place] [address]
--- OUTSIDE RECORDS SUMMARY | 2024-04-06 17:36 | XMS_ITS | Continuity of Care Document ---
Author Organization [facility] John reece Address [address] [place] [address] [address] [place] [address]- Care Team Providers Care Laundry Machine Tender Name Role Phone Nader DESIR, Yolanda Orellana Primary Care Physician Encounter [facility] [place] Date(s): 04/11/23 - 04/18/23 [facility] Surgery [address] [place] [address] Drive [address] [place], [place] [address] Attending Physician: Not on Staff, Attending MD [...] tablet, 6 Refills, Maintenance, 04/15/23 7:52:00 EDT, [facility] #[id number], 162, cm, 04/14/23 13:29:00 EDT, Height, 65.5, kg, 03/28/23 8:15:00 EDT, Dry Weight Start Date: 04/15/23 Status: Ordered Crestor 5 mg oral tablet 1 tablet = 5 mg, By Mouth, Daily, # 30 tablet, 1 Refills, Maintenance, 03/10/23 7:39:00 EDT, [facility] #[id number], Partial fill upon patient request if the prescription is for a schedule II opioid drug., 162, cm, 03/10/23 7:32:00 EDT, Height Start Date: 03/10/23 Status: Ordered sulfamethoxazole-trimethoprim 800 mg-160 mg oral tablet 1 tablet, By Mouth, 2 times a day, for 10 days, # 20 tablet, 0 Refills, Acute 04/28/23 13:01:00 EST, 04/18/23 13:01:00 EDT, Tablet, [facility] #[id number], Partial fill upon patient request if the prescription is for a schedule II opioid drug., 1... 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 Tobacco abuse Confirmed Active Vital Signs Most recent to oldest [Reference Range]: 1 Height 162 cm (04/11/23 11:01 AM) Weight 65.5 kg (04/11/23 11:01 AM) Body Mass Index [18.5-24.99 kg/m2] 24.96 kg/m2 (04/11/23 11:01 AM) Weight Obtained Via Standing scale (04/11/23 11:01 AM) Social History Social History Type Response Smoking Status Former smoker, quit more than 30 days ago entered on: 04/14/23 Sex Patient Care team information Care Team Personnel Name: Nader DESIR, Yolanda Orellana Position: [facility] PCO Associate Professional Member Role: PCP Address: Address: [address] [place] [address]- Care Team Related Persons Name: YING LUIS Address: home [address] [place] [address] Name: FABRIZIO LUIS Address: home [address] [place] [address]
--- OUTSIDE RECORDS SUMMARY | 2024-04-06 17:36 | XMS_ITS | Continuity of Care Document ---
Author Organization [facility] John reece Address [address] [place] [address] Dr [address] [place] [address]- Care Team Providers Care Clarity Specialists Name Role Phone Nader DESIR, Yolanda Orellana Primary Care Physician Encounter [facility] Date(s): 04/05/23 - 05/05/23 [facility] Surgery [address] [place] [address] Drive [address] [place], [place] [address] Attending Physician: Ivone Ge Admitting Physician: AdmIvone fontaine Referring Physician: AdmtrIvone Allergies, Adverse Reactions, Alerts No Known Medication [...] tablet, 6 Refills, Maintenance, 04/15/23 7:52:00 EDT, [facility] #[id number], 162, cm, 04/14/23 13:29:00 EDT, Height, 65.5, kg, 03/28/23 8:15:00 EDT, Dry Weight Start Date: 10/27/23 Status: Ordered Crestor 5 mg oral tablet 1 tablet = 5 mg, By Mouth, Daily, # 30 tablet, 1 Refills, Maintenance, 03/10/23 7:39:00 EDT, [facility] #[id number], Partial fill upon patient request if the [...] Personnel Name: Nader DESIR, Yolanda Orellana Position: [facility] PCO Associate Professional Member Role: PCP Address: Address: [address] [place] [address]- Care Team Related Persons Name: YING LUIS Address: home [address] [place] [address] Name: FABRIZIO LUIS Address: home [address] [place] [address]
--- OUTSIDE RECORDS SUMMARY | 2024-04-06 17:36 | XMS_ITS | Continuity of Care Document ---
Author Organization [facility] John reece Address [address] [place] [address] [address] [place] [address]- Care Team Providers Care Saturator Name Role Phone Nader DESIR, Yolanda Orellana Primary Care Physician Encounter [facility] Date(s): 04/25/23 - 05/25/23 [facility] [address] [place], [place] [address] Attending Physician: Admtr, Ar8 Admitting Physician: Admtr, Ar8 Referring Physician: Admtr, Ar8 Allergies, Adverse Reactions, Alerts No Known Medication [...] tablet, 6 Refills, Maintenance, 04/15/23 7:52:00 EDT, [facility] #[id number], 162, cm, 04/14/23 13:29:00 EDT, Height, 65.5, kg, 03/28/23 8:15:00 EDT, Dry Weight Start Date: 04/15/23 Status: Ordered rosuvastatin 5 mg oral tablet 1 tablet, By Mouth, Daily, # 30 tablet, 6 Refills, Maintenance, 05/10/23 14:04:00 EST, [facility] #[id number], 161, cm, 05/10/23 9:02:00 EST, Height, 65.3, [...] Personnel Name: Nader DESIR, Yolanda Orellana Position: [facility] PCO Associate Professional Member Role: PCP Address: Address: [address] [place] [address]- Care Team Related Persons Name: YING LUIS Address: home [address] [place] [address] Name: FABRIZIO LUIS Address: home [address] [place] [address]
--- OUTSIDE RECORDS SUMMARY | 2024-04-06 17:36 | XMS_ITS | Continuity of Care Document ---
Author Organization [facility] Address [address] [place] [address]- Care Team Providers Care Dictaphone Technician Name Role Phone Nader DESIR, Yolanda Orellana Primary Care Physician Encounter 01/04/23 - 01/11/23 [facility] [address], [address] [place] [address]- Attending Physician: Yolanda Doe NP Admitting Physician: Nader DESIR, Yolanda Orellana Referring Physician: Nader DESIR, Yolanda Orellana Allergies, Adverse Reactions, Alerts No Known Medication Allergies Immunizations Given and Recorded Vaccine Date Status Refusal Reason SARS-CoV-2 (COVID-19) mRNA-1273 vaccine 05/21/21 R ecorded SARS-CoV-2 (COVID-19) mRNA-1273 vaccine 11/03/20 R ecorded SARS-CoV-2 (COVID-19) mRNA-1273 vaccine 10/06/20 R ecorded tetanus/diphtheria/pertussis, acel(Tdap) 09/02/16 Given Problem List Condition Confirmation Course Effective Dates Status H ealth Status Informant Allergic reaction to food Confirmed Active Hyperlipidemia Confirmed Active Tobacco abuse Confirmed Active Results Radiology Reports * Exam Date Time Procedure Performing Provider Status 01/04/23 9:21 AM US Breast Left Limited Carolyn Aguilar ; Modified Notes: (US Breast Left Limited) Reason For Exam: LEFT ABNORMAL MAMMOGRAM ADDENDUM: US Breast Left Limited There are inadvertent transcriptional error the initial report. The last 2 sentences of the FINDINGS part of the report should read as follows: There are no linear or branching morphologies. There is no suggestion of layering out on lateral view. In addition, part 2 of the IMPRESSION should read as follows: 2. The developing microcalcifications in the left breast are of sufficient concern that further evaluation is recommended by stereotactic guided core biopsy. WSN: [id number] Ordering Physician: Yolanda Doe Dictated By: Thuan Lyons MD Dictated Date/Time: 01/07/23 1:34 pm Reviewed By: Thuan Lyons MD Signed By: Thuan Lyons MD Signed Date/Time: 01/07/23 1:34 pm Transcribed By: DANO Transcribed Date/Time: 01/07/23 1:31 pm RESULT: US Breast Left Limited PROCEDURE: MM Digital Mammo Unilat Left, US Breast Left Limited INDICATION: Callback from the examination of 11/09/2022. TECHNIQUE: Multiple diagnostic mammographic images of left breast including 3-D tomography. Targeted left breast ultrasound. FINDINGS: The areas of asymmetry in the left breast efface on spot imaging. Ultrasound examination performed over a wide area to correlate with the mammographic asymmetries. No cyst or discrete solid abnormality is seen. The large area of developing microcalcifications is included on today's spot magnification views. The calcifications have heterogeneous shape, ranging from tiny and punctate to larger and coarse benign. Linear or branching morphologies. There is no since of layering out on lateral view. Insert field IMPRESSION: 1. The asymmetries suspected on the screening examination do not persist on diagnostic mammographicimages. No ultrasound correlate. 2. The developing microcalcifications of both breasts are specifically concerned if further evaluation is recommended by stereotactic guided core biopsy. 3. Results and recommendations were discussed with the patient occlusion of the examination. RECOMMENDATION: Stereotactic biopsy left breast BI-RADS: 4 (Suspicious) Lay letter mailed to patient WSN: [id number] Ordering Physician: Yolanda Doe Dictated By: Thuan Lyons MD Dictated Date/Time: 01/04/23 9:33 am Reviewed By: Thuan Lyons MD Signed By: Thuan Lyons MD Signed Date/Time: 01/04/23 9:33 am Transcribed By: DANO Transcribed Date/Time: 01/04/23 9:23 am * Exam Date Time Procedure Performing Provider Status 01/04/23 8:41 AM MM Digital Mammo Unilat Left Miriam Herring; Modified Notes: (MM Digital Mammo Unilat Left) Reason For Exam: LEFT ABNORMAL MAMMOGRAM RESULT: MM Digital Mammo Unilat Left PROCEDURE: MM Digital Mammo Unilat Left, US Breast Left Limited INDICATION: Callback from the examination of 11/09/2022. TECHNIQUE: Multiple diagnostic mammographic images of left breast including 3-D tomography. Targeted left breast ultrasound. FINDINGS: The areas of asymmetry in the left breast efface on spot imaging. Ultrasound examination performed over a wide area to correlate with the mammographic asymmetries. No cyst or discrete solid abnormality is seen. The large area of developing microcalcifications is included on today's spot magnification views. The calcifications have heterogeneous shape, ranging from tiny and punctate to larger and coarse benign. Linear or branching morphologies. There is no since of layering out on lateral view. Insert field IMPRESSION: 1. The asymmetries suspected on the screening examination do not persist on diagnostic mammographicimages. No ultrasound correlate. 2. The developing microcalcifications of both breasts are specifically concerned if further evaluation is recommended by stereotactic guided core biopsy. 3. Results and recommendations were discussed with the patient occlusion of the examination. RECOMMENDATION: Stereotactic biopsy left breast BI-RADS: 4 (Suspicious) Lay letter mailed to patient WSN: [id number] Ordering Physician: Yolanda Doe Dictated By: Thuan Lyons MD Dictated Date/Time: 01/04/23 9:33 am Reviewed By: Thuan Lyons MD Signed By: Thuan Lyons MD Signed Date/Time: 01/04/23 9:33 am Transcribed By: CSB Terrazzo Layer Helper Date/Time: 01/04/23 9:23 am Birads: ADDENDUM: MM Digital Mammo Unilat Left There are inadvertent transcriptional error the initial report. The last 2 sentences of the FINDINGS part of the report should read as follows: There are no linear or branching morphologies. There is no suggestion of layering out on lateral view. In addition, part 2 of the IMPRESSION should read as follows: 2. The developing microcalcifications in the left breast are of sufficient concern that further evaluation is recommended by stereotactic guided core biopsy. WSN: [id number] Ordering Physician: Yolanda Doe Dictated By: Thuan Lyons MD Dictated Date/Time: 01/07/23 1:34 pm Reviewed By: Thuan Lyons MD Signed By: Thuan Lyons MD Signed Date/Time: 01/07/23 1:34 pm Transcribed By: CSB Terrazzo Layer Helper Date/Time: 01/07/23 1:31 pm Birads: Social History Social History Type Response Smoking Status Current every day riana zhong entered on: 05/11/16 Sex Patient Care team information Care Team Personnel Name: Nader DESIR, Yolanda Orellana Position: S PCO Associate Professional Member Role: PCP Address: Address: [address] [place] [address]- Care Team Related Persons Name: YING LUIS Address: home [address] [place] [address] Name: FABRIZIO LUIS Address: home [address] [place] [address]
--- OUTSIDE RECORDS SUMMARY | 2024-04-06 17:36 | XMS_ITS | Continuity of Care Document ---
Author Organization [facility] N[place] lt Address [address] [place] [address]- Care Team Providers Care Chocolate Dipper Name Role Phone Nader DESIR, Yolanda Orellana Primary Care Physician [phone] Encounter [facility] [facility] [id number] Date(s): 11/04/22 - 12/04/22 [facility] Adult [address] [place] [address]- Allergies, Adverse Reactions, Alerts No Known Medication [...] Hyperlipidemia Confirmed Active Tobacco abuse Confirmed Active Social History Social History Type Response Smoking Status Current every day sm trevin entered on: 05/11/16 Sex Patient Care team information Care Team Personnel Name: Yolanda Doe NP Position: S PCO Associate Professional Member Role: PCP Address: Address: [address] [place] [address] [place] [address]- Care Team Related Persons Name: YING LUIS Address: home [address] [place] [address] Name: FABRIZIO LUIS Address: home [address] [place] [address]
--- OUTSIDE RECORDS SUMMARY | 2024-04-06 17:36 | XMS_ITS | Continuity of Care Document ---
Author Organization [facility] [place] Address [address] [place] [address]- Care Team Providers Care Press Setter Name Role Phone Nader DESIR, Yolanda Orellana Primary Care Physician [phone] En[place] [facility] Date(s): 06/30/23 - 07/07/23 [facility] Adult [address] [place] [address]- Encounter Diagnosis Hypertension(Discharge Diagnosis) - 06/30/23 Hyperlipidemia(Discharge Diagnosis) - 06/30/23 Attending Physician: Nader DESIR, Yolanda Orellana Referring [...] tablet, 6 Refills, Maintenance, 04/15/23 7:52:00 EDT, [facility] #[id number], 162, cm, 04/14/23 13:29:00 EDT, Height, 65.5, kg, 03/28/23 8:15:00 EDT, Dry Weight Start Date: 04/15/23 Status: Ordered pravastatin 20 mg oral tablet 20 mg, 1, tablet, By Mouth, Daily, # 30 tablet, Refills 6, Tot. Refills 6, Maintenance, 06/30/23 7:40:00 EST, Route to Pharmacy Electronically, [facility] #[id number], Partial fill upon patient request if the [...] Cl inical Service Informant Hypertension Discharge Diagnosis 06/30/23 Hyperlipidemia Discharge Diagnosis 06/30/23 Vital Signs Most recent to oldest [Reference Range]: 1 2 Height 161 cm (06/30/23 7:48 AM) 161 cm (06/30/23 7:34 AM) Weight 66.3 kg (06/30/23 7:34 AM) Pulse Rate [55-90 bpm] 64 bpm (06/30/23 7:34 AM) Body Mass Index [18.5-24.99 kg/m2] 25.58 kg/m2 *H* (06/30/23 7:34 AM) Blood Pressure [90-138/55-84 mm Hg] 168/ 79mm Hg *H* (06/30/23 7:48 AM) 170/80mm Hg *H* (06/30/23 7:34 AM) Temperature [96.8-100.4 DegF] 97.7 DegF (06/30/23 7:34 AM) Blood pressure sites Leg, left (06/30/23 7:34 AM) Temperature Route Oral (06/30/23 7:34 AM) Social History Social History Type Response Smoking Status Former smoker, quit more than 30 days ago; Other: quit 07/2022; entered on: 04/11/23 Sex Note * Angelica Grover: PERFORM, SIGN, VERIFY Event Display: Patient Education/Instruction Authored Date: [id number] [facility] *VITA Velasquez Clinical Summary Name ESTHER HA Age 63 Years 1960 PCP Nader DESIR, [facility]olanda [id number] Date 06/30/2023 07:30:00 Additional Instructions: Scheduled Appointments?? Future Appointments ?*BMP??So[facility] [address],??[address] ?Phone:??--?Fax:??-- ?Appt. Date:??08/01/2023?10:30 AM ?Scheduled Provider:??Nader DESIR , Yolanda Dia Follow-Up Instructions ?? With: Address: When: Follow up, 1 Month Diagnosis Hyperlipidemia, unspecified; Essential (primary) hypertension Medications: Please continue your medications until treatment is completed or stopped by your provider. Discuss any questions related to medications with your provider. New Medications [facility] #[id number], [address] [place] [phone], [phone] Pravastatin (pravastatin 20 mg oral tablet) 1 tab(s) Oral Daily. Refills: 6. Next Dose: Medications to Continue with No Changes These medications were not printed or sent to your pharmacy Amlodipine (amLODIPine 5 mg oral tablet) 1 tab(s) Oral Daily. Refills: 6. Next Dose: No Longer Take the Following Medications Rosuvastatin (rosuvastatin 5 mg oral tablet) 1 tab(s) Oral Daily. Refills: 6. Allergy Info:?? No Known Medication Allergies; Other Food Allergy Medications Given This Visit Future Orders ?No future orders Vital Signs Height 161 cm Weight 66.3 kg BMI 25.58 kg/m2 Blood Pressure 170 mm Hg/80 mm Hg Temperature 97.7 DegF Pulse Rate 64 bpm Respiratory Rate 02 Sat Mode of Delivery / You can now view a summary of your hospital visit from the comfort of your home through a free online portal called [employer]. [employer] is a website that allows you to securely view your medical information including discharge summary, medications and follow-up visits. ??You can alsosend a secure electronic message to your doctor???s office to request appointments, renew medications or just ask a question. You can enroll at [email or web address] or register during your next office [...] primary care provider, you may find a [facility] provider by calling [facility] Link at [phone]. [facility], in keeping with [facility] guidance, no longer requires face masks for [...] Associate Professional Member Role: PCP Address: Address: [address] [place] [address]- Care Team Related Persons Name: YING LUIS Address: home [address] [place] [address] Name: FABRIZIO LUIS Address: home [address] [place] [address]
--- OUTSIDE RECORDS SUMMARY | 2024-04-06 17:36 | XMS_ITS | Continuity of Care Document ---
Author Organization [facility] John reece Address [address] [place] [address] [address] [place] [address]- Care Team Providers Care Vascular Nurse Name Role Phone Nader DESIR, Yolanda Orellana Primary Care Physician Encounter [facility] Date(s): 04/20/23 - 05/20/23 [facility] Surgery [address] [place] [address] Drive [address] [place], [place] [address] Allergies, Adverse Reactions, Alerts No Known Medication [...] tablet, 6 Refills, Maintenance, 04/15/23 7:52:00 EDT, [facility] #[id number], 162, cm, 04/14/23 13:29:00 EDT, Height, 65.5, kg, 03/28/23 8:15:00 EDT, Dry Weight Start Date: 04/15/23 Status: Ordered rosuvastatin 5 mg oral tablet 1 tablet, By Mouth, Daily, # 30 tablet, 6 Refills, Maintenance, 05/10/23 14:04:00 EST, [facility] #[id number], 161, cm, 05/10/23 9:02:00 EST, Height, 65.3, [...] DESIR, Yolanda Orellana Position: [facility] PCO Associate Professional Member Role: PCP Address: Address: [address] [place] [address]- Care Team Related Persons Name: YING LUIS Address: home [address] [place] [address] Name: FABRIZIO LUIS Address: home [address] [place] [address]
--- OUTSIDE RECORDS SUMMARY | 2024-04-06 17:36 | XMS_ITS | Continuity of Care Document ---
Author Organization [facility] Address [address] [place] [address]- Care Team Providers Care Laborer Cheesemaking Name Role Phone Yolanda Doe NP Primary Care Physician [place] [facility] [place] 08/30/22 - 09/29/22 [facility] Adult [address] [place] [address]- Allergies, Adverse Reactions, Alerts No Known Medication Allergies Immunizations Given and Recorded Vaccine Date Status Refusal Reason tetanus/diphtheria/pertussis, acel(Tdap) 09/02/16 Given Problem List Condition [...] Associate Professional Member Role: PCP Address: Address: [address] [place] [address] [place] [address]- Care Team Related Persons Name: YING LUIS Address: home [address] [place] [address] Name: FABRIZIO LUIS Address: home [address] [place] [address]
--- OUTSIDE RECORDS SUMMARY | 2024-04-06 17:36 | XMS_ITS | Continuity of Care Document ---
Author Organization [facility] Address [address] [address]- Care Team Providers Care Construction Person Name Role Phone Nader DESIR, Yolanda Orellana Primary Care Physician [phone] Encounter [facility] [place] Date(s): 11/02/22 - 12/02/22 [facility] [address] [facility] [address] [place] [address]- Allergies, Adverse Reactions, Alerts No Known Medication [...] Response Smoking Status Current every day sm yifaner entered on: 05/11/16 Sex Patient Care team information Care Team Personnel Name: Yolanda Doe NP Position: S PCO Associate Professional Member Role: PCP Address: Address: [address] [place] [address] [place] [address]- [place] Care Team Related Persons Name: YING LUIS Address: [address] [place] [address] Name: FABRIZIO LUIS Address: home [address] [place] [address]
--- OUTSIDE RECORDS SUMMARY | 2024-04-06 17:36 | XMS_ITS | Continuity of Care Document ---
Author Organization [facility] Address [address] [place] [address]- Care Team Providers Care Stripping Machine Operator Name Role Phone Nader DESIR, Yolanda Orellana Primary Care Physician [place] [facility] [place](s): 11/08/23 - 12/08/23 [facility] [address] [place] [address]- Allergies, Adverse Reactions, Alerts No Known Medication [...] tablet, 6 Refills, Maintenance, 11/09/23 6:37:00 EDT, [facility] #[id number], 163, cm, 09/22/23 9:43:00 EDT, Height, 66.4, kg, 08/08/23 13:18:00 EST, Dry Weight Start Date: 11/09/23 Status: Ordered pravastatin 20 mg oral tablet 20 mg, 1, tablet, By Mouth, Daily, # 30 tablet, Refills 6, Tot. Refills 6, Maintenance, 11/09/23 6:37:00 EDT, Route to Pharmacy Electronically, [facility] #[id number], Partial fill upon patient request if the [...] Associate Professional Member Role: PCP Address: Address: [address] [place] [address]- Care Team Related Persons Name: YING LUIS Address: home [address] [place] [address] Name: FABRIZIO LUIS Address: home [address] [place] [address]
--- OUTSIDE RECORDS SUMMARY | 2024-04-06 17:37 | XMS_ITS | Continuity of Care Document ---
Author Organization [facility] [place] Address [address] [facility], [address] [place] [address]- Care Team Providers Care Container Maker Name Role Phone Nader DESIR, Yolanda Orellana Primary Care Physician Encounter 07/14/23 - 04/04/24 [facility] [address], [address] [place] [address]- Attending Physician: Keaton De Los Santos DO Admitting Physician: Keaton De Los Santos DO Referring Physician: Keaton De Los Santos DO Allergies, Adverse Reactions, Alerts No Known Medication [...] tablet, 6 Refills, Maintenance, 11/09/23 6:37:00 EDT, [facility] #[id number], 163, cm, 09/22/23 9:43:00 EDT, Height, 66.4, kg, 08/08/23 13:18:00 EST, Dry Weight Start Date: 11/09/23 Status: Ordered pravastatin 20 mg oral tablet 20 mg, 1, tablet, By Mouth, Daily, # 30 tablet, Refills 6, Tot. Refills 6, Maintenance, 11/09/23 6:37:00 EDT, Route to Pharmacy Electronically, [facility] #[id number], Partial fill upon patient request if the [...] Personnel Name: Nader DESIR, Yolanda Orellana Position: [facility] PCO Associate Professional Member Role: PCP Address: Address: [address] [place] [address]- Care Team Related Persons Name: YING LUIS Address: home [address] [place] [address] Name: FABRIZIO LUIS Address: home [address] [place] [address]
--- OUTSIDE RECORDS SUMMARY | 2024-04-06 17:37 | XMS_ITS | Continuity of Care Document ---
Author Organization [facility] Address [address] [place] [address]- Care Team Providers Care Professional Driver Name Role Phone Nader DESIR, Yolanda Orellana Primary Care Physician [place] [facility] [place]s): 01/02/24 - 02/01/24 [facility] [address] [place] [id number] Allergies, Adverse Reactions, Alerts No Known [...] tablet, 6 Refills, Maintenance, 11/09/23 6:37:00 EDT, [facility] #[id number], 163, cm, 09/22/23 9:43:00 EDT, Height, 66.4, kg, 08/08/23 13:18:00 EST, Dry Weight Start Date: 11/09/23 Status: Ordered pravastatin 20 mg oral tablet 20 mg, 1, tablet, By Mouth, Daily, # 30 tablet, Refills 6, Tot. Refills 6, Maintenance, 11/09/23 6:37:00 EDT, Route to Pharmacy Electronically, [facility] #[id number], Partial fill upon patient request if the [...] Personnel Name: Nader DESIR, Yolanda Orellana Position: [facility] PCO Associate Professional Member Role: PCP Address: Address: [address] [place] [address]- Care Team Related Persons Name: YING LUIS Address: home [address] [place] [address] Name: FABRIZIO LUIS Address: home [address] [place] [address]
--- OUTSIDE RECORDS SUMMARY | 2024-04-06 17:37 | XMS_ITS | Continuity of Care Document ---
Author Organization [facility] Address [address] [place] [address] [address] [place] [address]- Care Team Providers Care Oil Program Compliance Specialist Name Role Phone Nader DESIR, Yolanda Orellana Primary Care Physician Encounter [facility] [place] Date(s): 07/29/23 - 08/05/23 [facility] [address] [place] [address] Drive [address] [place] [address]- Attending Physician: Fred Farnsworth MD Referring Physician: Nader DESIR, Yolanda Orellana [...] tablet, 6 Refills, Maintenance, 04/15/23 7:52:00 EDT, [facility] #[id number], 162, cm, 04/14/23 13:29:00 EDT, Height, 65.5, kg, 03/28/23 8:15:00 EDT, Dry Weight Start Date: 04/15/23 Status: Ordered pravastatin 20 mg oral tablet 20 mg, 1, tablet, By Mouth, Daily, # 30 tablet, Refills 6, Tot. Refills 6, Maintenance, 06/30/23 7:40:00 EST, Route to Pharmacy Electronically, [facility] #[id number], Partial fill upon patient request if the [...] oldest [Reference Range]: 1 Height 163 cm (07/29/23 1:04 PM) Weight 66.6 kg (07/29/23 1:04 PM) Body Mass Index [18.5-24.99 kg/m2] 25.07 kg/m2 *H* (07/29/23 1:04 PM) Weight Obtained Via Standing scale (07/29/23 1:04 PM) Social History Social History Type Response Smoking Status Former smoker, quit more than 30 days ago; Other: quit 07/2022; entered on: 04/11/23 Sex Patient Care team information Care Team Personnel Name: Nader DESIR, Yolanda Orellana Position: [facility] PCO Associate Professional Member Role: PCP Address: Address: [address] [place] [address]- Care Team Related Persons Name: YING LUIS Address: home [address] [place] [address] Name: FABRIZIO LUIS Address: home [address] [place] [address]
--- OUTSIDE RECORDS SUMMARY | 2024-04-06 17:37 | XMS_ITS | Continuity of Care Document ---
Author Organization [facility] [place] Address [address] [place] [address]- Care Team Providers Care Byproducts Extractor Name Role Phone Nader DESIR, Yolanda Orellana Primary Care Physician [phone] Encounter [facility] [place] Date(s): 08/10/23 - 12/08/23 [facility] [place] Adult [address] [place] [address]- Attending Physician: Nader DESIR, Yolanda Orellana Referring [...] tablet, 6 Refills, Maintenance, 11/09/23 6:37:00 EDT, [facility] #[id number], 163, cm, 09/22/23 9:43:00 EDT, Height, 66.4, kg, 08/08/23 13:18:00 EST, Dry Weight Start Date: 11/09/23 Status: Ordered pravastatin 20 mg oral tablet 20 mg, 1, tablet, By Mouth, Daily, # 30 tablet, Refills 6, Tot. Refills 6, Maintenance, 11/09/23 6:37:00 EDT, Route to Pharmacy Electronically, [facility][id number], Partial fill upon patient request if the [...] Personnel Name: Nader DESIR, Yolanda Orellana Position: [facility] PCO Associate Professional Member Role: PCP Address: Address: [address] [place] [address]- Care Team Related Persons Name: YING LUIS Address: home [address] [place] [address] Name: FABRIZIO LUIS Address: home [address] [place] [address]
--- OUTSIDE RECORDS SUMMARY | 2024-04-06 17:37 | XMS_ITS | Continuity of Care Document ---
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 Refills 6, Maintenance, 11/09/23 6:37:00 EDT, Route to Pharmacy Electronically, [facility] #[id number], Partial fill upon patient request if the prescription is for a schedule II opi... Start Date: 11/09/23 Status: Ordered Problem List Condition Confirmation Course Effective Dates Status H ealth Status Informant Allergic reaction to food Confirmed Active Hyperlipidemia Confirmed Active Hypertension Confirmed Active Ductal carcinoma in situ of left breast Confirmed Active Tobacco abuse Confirmed Active Diagnosis Diagnosis Type Effective Dates Health Status Clinical Service Informant Annual physical exam Discharge Diagnosis 11/24/23 Hyperlipidemia Discharge Diagnosis 11/24/23 Hypertension Discharge Diagnosis 11/24/23 Ductal carcinoma in situ of left breast Discharge Diagnosis 11/24/23 Vital Signs Most recent to oldest [Reference Range]: 1 Height 163 cm (11/24/23 7:55 AM) Weight 66.7 kg (11/24/23 7:55 AM) Oxygen Saturation [94-100 %] 98 % (11/24/23 7:55 AM) Pulse Rate [55-90 bpm] 58 bpm (11/24/23 7:55 AM) Body Mass Index [18.5-24.99 kg/m2] 25.1 kg/m2 *H* (11/24/23 7:55 AM) Blood Pressure [90-138/55-84 mm Hg] 119/ 71mm Hg (11/24/23 7:55 AM) Blood pressure sites Arm, right (11/24/23 7:55 AM) Weight Obtained Via Standing scale (11/24/23 7:55 AM) Social History Social History Type Response Smoking Status Former smoker, quit more than 30 days ago; Other: quit 07/2022; entered on: 04/11/23 Sex Note * Yissel Lafleur: PERFORM Event Display: Patient Education/Instruction Authored Date: [id number] Ambulatory Adult Visit Summary [facility] [address] [place] [id number] Name: ESTHER HA : 1960?? Visit: 11/24/2023 07:50?? Ambulatory Visit Instructions ?? Your Care Team Primary Care Provider Yolanda Doe NP? This Visit Provider Yolanda Doe NP Your Diagnosis Annual physical exam Hyperlipidemia Hypertension Ductal carcinoma in situ of left breast Vitals Signs Pulse Rate: 58 bpm Height: 163 cm Systolic Blood Pressure: 119 mm Hg Weight: 66.7 kg Diastolic Blood Pressure: 71 mm Hg Body Mass Index:??25.1 kg/m2??High Oxygen Saturation: 98 % Body surface area: 1.74 What to do next Scheduled Follow-Up Appointments Tuesday 8:15 AM EDT ?? Where: [facility] [address] [place] [address]- Status: Pending Follow-Up Appointments Follow Up with??Yolanda Doe NP When:??In 6 months Where: [address] [place] [address] [place] [address]- Future Orders Comprehensive Metabolic Panel - Routine, Once, 11/24/23 8:09:00 EDT, Future Order, [facility], Blood?? Lipid Panel - Routine, Once, 11/24/23 8:09:00 EDT, Future Order, [facility], Blood?? Medications The list below reflects the information in our records and provided by you today along with any changes made during this visit. Please continue your medications until treatment is completed or stopped by your provider. If this is different from the information you have or there are other questions,please contact the prescribing provider. What How Much When Instructions Unchanged Amlodipine (amLODIPine 5 mg oral tablet) 1 tab(s) Oral Daily Unchanged Pravastatin (pravastatin 20 mg oral tablet) 1 tab(s) Oral Daily Test Performed Below is a partial list of the tests performed during your Visit. You may have had other tests and procedures not included in this list. Please discuss all test results with your provider. Comprehensive Metabolic Panel?-- Results Pending -- Lipid Panel?-- Results Pending -- You will be contacted within 72 hours with your results. Medications and Immunizations Administered Medications Given During Visit No medications given during this visit.?? Allergies (NKA means No Known Allergies) No Known Medication Allergies Other Food Allergy??(swelling face) Common Emergency Awareness Tips IS IT A STROKE? Act FAST and Check for these signs: FACE Does the face look uneven? ARM Does one arm drift down? SPEECH Does their speech sound strange? TIME Call at any sign of stroke ?? Heart Attack Signs Chest discomfort: Most heart attacks involve discomfort in the center of the chest and lasts more than a few minutes, or goes away and comes back. It can feel like uncomfortable pressure, squeezing, fullness or pain. Discomfort in upper body: Symptoms can include pain or discomfort in one or both arms, back, neck, jaw or stomach. Shortness of breath: With or without discomfort. Other signs: Breaking out in a cold sweat, nausea, or lightheaded. Remember, MINUTES DO MATTER. If you experience any of these heart attack warning signs, call to get immediate medical attention! ?? Smoking can increase your chances of developing chronic health problems and can cause harmful effects to other family members in your house. If you smoke, you are strongly encouraged to quit. Please call [facility] at [phone] or [phone] ([phone]) or log in to [email or web address] for referrals to smoking cessation programs. ?? The National Suicide Prevention Hotline is available 10/01 if you or someone you know needs to find a reason to keep living. By calling 8-457-511-[employer] (8399) you'll be connected to a skilled, trained counselor at a crisis center in your area. [facility] You can view and manage your care through the patient portal or by using a health care zaida of your choosing. [email or web address] is a website that allows you to securely view your medical information including your hospital discharge summary, office visit summaries, medications and follow-up visits. You can also request appointments, renew medications, and request access to your medical information using a health care zaida of your choosing, or just ask a question. You can enroll at [email or web address] or register during your next office visit. [facility], in keeping with [facility] guidance, no longer requires face masks for staff, patientsor visitors in most situations. Similiar to time spent indoors at other locations, there is the chance that you were exposed to repiratory viruses during your time with us (such as flu or COVID-19). If you develop symptoms concerning for a viral respiratory infection, please seek testing (and treatment if indicated) from your medical provider or home test kit. ?? Disclaimer: The information provided is of a general nature and is intended to be used in conjunction with the recommendations and advice of your health care practitioner. Every effort has been made to ensure that the information provided is accurate and complete at the time it is provided to you however, as your needs change, or, as new information becomes available, different or additional instructions may be required. ?? If you have questions, please consult with your primary care provider or pharmacist, as appropriate. This information is not intended to serve as substitution for assessment and evaluation by a qualified health care provider. If you do not have a primary care provider, you may find a [facility] provider by calling [facility] at [phone]. Patient Care team information Care Team Personnel Name: Nader DESIR, Yolanda Orellana Position: [facility] PCO Associate Professional Member Role: PCP Address: Address: [address] [place] [address]- Care Team Related Persons Name: YING LUIS Address: home [address] [place] [address] Name: FABRIZIO LUIS Address: home [address] [place] [address]
--- OUTSIDE RECORDS SUMMARY | 2024-04-06 17:37 | XMS_ITS | Continuity of Care Document ---
Author Organization [facility] Address [address] [place] [address]- Care Team Providers Care Director Physical Name Role Phone Nader DESIR, Yolanda Orellana Primary Care Physician [place] [facility]/18/22 - 01/05/[address] [address] Attending Physician: Yolanda Doe NP Admitting Physician: Yolanda Doe NP Referring Physician: Nader DESIR, Yolanda Orellana Allergies, [...] Associate Professional Member Role: PCP Address: Address: [address] [place] [address]- Care Team Related Persons Name: YING LUIS Address: home [address] [place] [address] Name: FABRIZIO LUIS Address: home [address] [place] [address]
--- OUTSIDE RECORDS SUMMARY | 2024-04-06 17:37 | XMS_ITS | Continuity of Care Document ---
Author Organization [facility] [place] Address [address] [facility], [address] [place] [address]- Care Team Providers Care Optometrist Assistant Name Role Phone Nader DESIR, Yolanda Orellana Primary Care Physician Encounter 11/09/22 - 11/16/22 [facility] [address], [facility] [address] [place] [address]- Attending Physician: Yolanda Doe NP Admitting Physician: Yolanda Doe NP Referring Physician: Yolanda Doe NP Allergies, Adverse Reactions, Alerts No Known Medication [...] Exam Date Time Procedure Performing Provider Status 11/09/22 9:14 AM MM Digital Mammo Screening Ambrosio Madden; Auth (Verified) Notes: (MM Digital Mammo Screening) Reason For Exam: Screening RESULT: MM Digital Mammo Screening PROCEDURE: MM Digital Mammo Screening INDICATION: Screening for breast cancer. No known palpable abnormalities. History of benign right ultrasound guided biopsy 2018 COMPARISON: 10/06/2018 and 10/03/2018 TECHNIQUE: Full-field digital CC and MLO 3D tomosynthesis images of both breasts were acquired. Computer-aided detection (CAD) was utilized in the interpretation of this study. DENSITY: The breast tissue contains scattered areas of fibroglandular density. FINDINGS: Interval increase in regional calcifications in the inferior mid to posterior left breast. Further evaluation with spot magnification views in CC and true lateral projections recommended. In addition, there are 2 apparent focal asymmetries in the inferior mid to posterior left breast, the larger one measuring up to 2 cm, around 4 to 8 cm from the nipple. Further evaluation with spot CC and MLO tomographic compression views and full field 3D true lateral view recommended. Targeted ultrasound may be obtained, if needed. No suspicious findings are seen in the right breast. Stable biopsy-proven fibroadenoma but biopsy clip in the lower outer mid to anterior right breast IMPRESSION: Additional imaging recommended. We will recall the patient. RECOMMENDATION: Imaging follow-up as described above BI-RADS: 0 (Incomplete - Need Additional Imaging Evaluation. Lay letter mailed to patient WSN: [id number] Ordering Physician: Yolanda Doe Dictated By: Yumiko Pope MD Dictated Date/Time: 11/09/22 9:31 am Reviewed By: Yumiko Pope MD Signed By: Yumiko Pope MD Signed Date/Time: 11/09/22 9:31 am Transcribed By: [facility] Date/Time: 11/09/22 9:23 am Birads: Social History Social History Type Response Smoking Status Current every day riana trevin entered on: 05/11/16 Sex MG Breast Screening * [facility] , CIS S: TRANSCRIBE Yumiko Pope MD: VERIFY Event Display: Result: Authored Date: [id number] PROCEDURE: MM Digital Mammo Screening INDICATION: Screening for breast cancer. No known palpable abnormalities. History of benign right ultrasound guided biopsy 2018 COMPARISON: 10/06/2018 and 10/03/2018 TECHNIQUE: Full-field digital CC and MLO 3D tomosynthesis images of both breasts were acquired. Computer-aided detection (CAD) was utilized in the interpretation of this study. DENSITY: The breast tissue contains scattered areas of fibroglandular density. FINDINGS: Interval increase in regional calcifications in the inferior mid to posterior left breast. Further evaluation with spot magnification views in CC and true lateral projections recommended. In addition, there are 2 apparent focal asymmetries in the inferior mid to posterior left breast, the larger one measuring up to 2 cm, around 4 to 8 cm from the nipple. Further evaluation with spot CC and MLO tomographic compression views and full field 3D true lateral view recommended. Targeted ultrasound may be obtained, if needed. No suspicious findings are seen in the right breast. Stable biopsy-proven fibroadenoma but biopsy clip in the lower outer mid to anterior right breast IMPRESSION: Additional imaging recommended. We will recall the patient. RECOMMENDATION: Imaging follow-up as described above BI-RADS: 0 (Incomplete - Need Additional Imaging Evaluation. Lay letter mailed to patient WSN: [id number] Ordering Physician: Yolanda Doe Dictated By: Yumiko Pope MD Dictated Date/Time: 11/09/22 9:31 am Reviewed By: Yumiko Pope MD Signed By: Yumiko Pope MD Signed Date/Time: 11/09/22 9:31 am Transcribed By: [facility] Date/Time: 11/09/22 9:23 am Birads: Patient Care team information Care Team Personnel Name: Yolanda Doe NP Position: [facility] PCO Associate Professional Member Role: PCP Address: Address: [address] [place] [address]- [place] Care Team Related Persons Name: YING LUIS Address: home [address] [place] [address] Name: FABRIZIO LUIS Address: home [address] [place] [address]
--- OUTSIDE RECORDS SUMMARY | 2024-04-06 17:37 | XMS_ITS | Continuity of Care Document ---
Author Organization [facility] Address [address] [place] [address] Dr [address] [place] [address]- Care Team Providers Care Teaching Specialists Name Role Phone Nader DESIR, Yolanda Orellana Primary Care Physician Encounter [facility] [place] Date(s): 04/25/23 - 05/02/23 [facility] [address] [place] [address] Drive [address] [place] [address]- Attending Physician: Not on Staff, Attending MD [...] tablet, 6 Refills, Maintenance, 04/15/23 7:52:00 EDT, [facility] #[id number], 162, cm, 04/14/23 13:29:00 EDT, Height, 65.5, kg, 03/28/23 8:15:00 EDT, Dry Weight Start Date: 04/15/23 Status: Ordered Crestor 5 mg oral tablet 1 tablet = 5 mg, By Mouth, Daily, # 30 tablet, 1 Refills, Maintenance, 03/10/23 7:39:00 EDT, [facility] #[id number], Partial fill upon patient request if the [...] oldest [Reference Range]: 1 Height 162 cm (04/25/23 10:28 AM) Weight 65 kg (04/25/23 10:28 AM) Body Mass Index [18.5-24.99 kg/m2] 24.77 kg/m2 (04/25/23 10:28 AM) Weight Obtained Via Standing scale (04/25/23 10:28 AM) Social History Social History Type Response Smoking Status Former smoker, quit more than 30 days ago; Other: quit 07/2022; entered on: 04/11/23 Sex Patient Care team information Care Team Personnel Name: Nader DESIR, Yolanda Orellana Position: [facility] PCO Associate Professional Member Role: PCP Address: Address: [address] [place] [address]- Care Team Related Persons Name: YING LUIS Address: home [address] [place] [address] Name: FABRIZIO LUIS Address: home [address] [place] [address]
--- OUTSIDE RECORDS SUMMARY | 2024-04-06 17:37 | XMS_ITS | Continuity of Care Document ---
Author Organization [facility] [place] [facility] Address [address] [place] [address]- Care Team Providers Care Submarine Element Coordinator Name Role Phone Nader DESIR, Yolanda Orellana Primary Care Physician [place] [facility] [place] Date(s): 01/13/21 - 02/12/21 [facility] Adult [address] [place] [address]- Attending Physician: Ivone Ge Admitting Physician: AdmvIone fontaine Referring Physician: AdmtrIvone Allergies, Adverse Reactions, Alerts No Known Medication Allergies Immunizations Given and Recorded Vaccine Date Status Refusal Reason tetanus/diphtheria/pertussis, acel(Tdap) 09/02/16 Given Problem List Condition Effective Dates Status Health Status Inform ant Allergic reaction to food(Confirmed) Active Hyperlipidemia(Confirmed) Active Tobacco abuse(Confirmed) Active Social History Social History Type Response Smoking Status Current every day riana zhong entered on: 05/11/16 Sex
--- OUTSIDE RECORDS SUMMARY | 2024-04-06 17:37 | XMS_ITS | Continuity of Care Document ---
Author Organization [facility] Cody Nj lt Address [address] [place] [address]- Care Team Providers Care Cereal Miller Name Role Phone Nader DESIR, Yolanda Orellana Primary Care Physician Encounter [facility] [place] Date(s): 12/27/19 - 01/03/20 [facility] Adult [address] [place] [address]- [facility] Encounter Diagnosis Annual physical exam(Discharge Diagnosis) - 12/27/19 Tobacco abuse(Discharge Diagnosis) - 12/27/19 Attending Physician: Yolanda Doe NP Referring Physician: Bang Araujo MD Allergies, Adverse Reactions, Alerts No Known Medication Allergies Immunizations Given and Recorded Vaccine Date Status Refusal Reason tetanus/diphtheria/pertussis, acel(Tdap) 09/02/16 Given Problem List Condition Effective Dates Status Health Status Inform ant Allergic reaction to food(Confirmed) Active Hyperlipidemia(Confirmed) Active Tobacco abuse(Confirmed) Active Diagnosis Diagnosis Type Effective Dates Health Status Cl inical Service Informant Annual physical exam Discharge Diagnosis 12/27/19 Tobacco abuse Discharge Diagnosis 12/27/19 Vital Signs Most recent to oldest [Reference Range]: 1 Height 162 cm (12/27/19 7:33 AM) Weight 60 kg (12/27/19 7:33 AM) Oxygen Saturation [94-100 %] 98 % (12/27/19 7:33 AM) Pulse Rate [55-90 bpm] 74 bpm (12/27/19 7:33 AM) Body Mass Index [18.5-24.99] 22.86 (12/27/19 7:33 AM) Blood Pressure [90-138/55-84 mm Hg] 118/ 75mm Hg (12/27/19 7:33 AM) Temperature [96.8-100.4 DegF] 98.2 DegF (12/27/19 7:33 AM) Blood pressure sites Arm, right (12/27/19 7:33 AM) Temperature Route Oral (12/27/19 7:33 AM) Weight Obtained Via Standing scale (12/27/19 7:33 AM) Social History Social History Type Response Smoking Status Current every day riana zhong entered on: 05/11/16 Sex
--- OUTSIDE RECORDS SUMMARY | 2024-04-06 17:37 | XMS_ITS | Continuity of Care Document ---
Author Organization [facility] Cody N[place] Address [address] [place] [address]- Care Team Providers Care Sheet Metal Welder Name Role Phone Nader DESIR, Yolanda Orellana Primary Care Physician Encounter [facility] [place] Date(s): 03/22/23 - 04/21/23 [facility] Adult [address] [place] [address]- Allergies, Adverse Reactions, Alerts No Known Medication [...] tablet, 6 Refills, Maintenance, 04/15/23 7:52:00 EDT, [facility] #[id number], 162, cm, 04/14/23 13:29:00 EDT, Height, 65.5, kg, 03/28/23 8:15:00 EDT, Dry Weight Start Date: 04/15/23 Status: Ordered Crestor 5 mg oral tablet 1 tablet = 5 mg, By Mouth, Daily, # 30 tablet, 1 Refills, Maintenance, 03/10/23 7:39:00 EDT, [facility] #[id number], Partial fill upon patient request if the prescription is for a schedule II opioid drug., 162, cm, 03/10/23 7:32:00 EDT, Height Start Date: 03/10/23 Status: Ordered sulfamethoxazole-trimethoprim 800 mg-160 mg oral tablet 1 tablet, By Mouth, 2 times a day, for 10 days, # 20 tablet, 0 Refills, Acute 04/28/23 13:01:00 EST, 04/18/23 13:01:00 EDT, Tablet, [facility] #[id number], Partial fill upon patient request if the [...] Most recent to oldest [Reference Range]: 1 Blood Pressure [90-138/55-84 mm Hg] 123/ 93mm Hg (03/22/23 11:48 AM) Social History Social History Type Response Smoking Status Former smoker, quit more than 30 days ago entered on: 04/14/23 Sex Patient Care team information Care Team Personnel Name: Nader DESIR, Yolanda Orellana Position: S PCO Associate Professional Member Role: PCP Address: Address: [address] [place] [address]- Care Team Related Persons Name: YING LUIS Address: home [address] [place] [address] Name: FABRIZIO LUIS Address: home [address] [place] [address]
--- OUTSIDE RECORDS SUMMARY | 2024-04-06 17:37 | XMS_ITS | Continuity of Care Document ---
Author Organization [facility] Jhonny Ross Nj lt Address [address] [place] [address]- Care Team Providers Care Business Professor Name Role Phone Nader DESIR, Yolanda Orellana Primary Care Physician [place] [facility] [place](s[place] 11/01/22 - 11/08/22 [facility] Jhonny Ross Adult [address] [place] [address]- Encounter Diagnosis Annual physical exam(Discharge Diagnosis) - 11/01/22 Hyperlipidemia(Discharge Diagnosis) - 11/01/22 Attending Physician: Nader DESIR, Yolanda Orellana Allergies, [...] Hyperlipidemia Confirmed Active Tobacco abuse Confirmed Active Diagnosis Diagnosis Type Effective Dates Health Status Clinical Service Informant Annual physical exam Discharge Diagnosis 11/01/22 Hyperlipidemia Discharge Diagnosis 11/01/22 Vital Signs Most recent to oldest [Reference Range]: 1 Height 162 cm (11/01/22 7:22 AM) Weight 67.5 kg (11/01/22 7:22 AM) Oxygen Saturation [94-100 %] 100 % (11/01/22 7:22 AM) Pulse Rate [55-90 bpm] 52 bpm *L* (11/01/22 7:22 AM) Body Mass Index [18.5-24.99 kg/m2] 25.72 kg/m2 *H* (11/01/22 7:22 AM) Blood Pressure [90-138/55-84 mm Hg] 139/ 79mm Hg *H* (11/01/22 7:22 AM) Blood pressure sites Arm, right (11/01/22 7:22 AM) Weight Obtained Via Standing scale (11/01/22 7:22 AM) Social History Social History Type Response Smoking Status Current every day riana zhong entered on: 05/11/16 Sex Patient Care team information Care Team Personnel Name: Nader DESIR, Yolanda Orellana Position: [facility] PCO Associate Professional Member Role: PCP Address: Address: [address] [place] [address]- Care Team Related Persons Name: YING LUIS Address: home [address] [place] [address] Name: FABRIZIO LUIS Address: home [address] [place] [address]
--- OUTSIDE RECORDS SUMMARY | 2024-04-06 17:37 | XMS_ITS | Continuity of Care Document ---
Author Organization [facility] Nj lt Address [address] [place] [address]- Care Team Providers Care Railroad Car Repairman Name Role Phone Nader DESIR, Yolanda Orellana Primary Care Physician En[place] [facility] [place] Date(s): 10/02/20 - 02/12/21 [facility] Adult [address] [place] [address]- Attending Physician: Nader DESIR, Yolanda Orellana Allergies, [...]
--- OUTSIDE RECORDS SUMMARY | 2024-04-06 17:37 | XMS_ITS | Continuity of Care Document ---
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 Refills 6, Maintenance, 11/09/23 6:37:00 EDT, [id number], Partial fill upon patient request if the [...] Dates Health Status Cl inical Service Informant Ductal carcinoma in situ of left breast Discharge Diagnosis 11/09/23 Social History Social History Type Response Smoking Status Former smoker, quit more than 30 days ago; Other: quit 07/2022; entered on: 04/11/23 Sex Patient Care team information Care Team Personnel Name: Nader DESIR, Yolanda Orellana Position: [facility] PCO Associate Professional Member Role: PCP Address: Address: [address] [place] [address]- Care Team Related Persons Name: YING LUIS Address: home [address] [place] [address] Name: FABRIZIO LUIS Address: home [address] [place] [address]
--- OUTSIDE RECORDS SUMMARY | 2024-04-06 17:37 | XMS_ITS | Continuity of Care Document ---
Author Organization 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 Name Role Phone Nader DESIR, Yolanda Oerllana Primary Care Physician [place] [facility] [place] 11/03/23 - 12/03/23 [facility] [address] [place] [id number] Attending Physician: Ivone Ge Admitting Physician: Ivone Ge Referring Physician: Ivone Ge Allergies, Adverse Reactions, Alerts No Known Medication [...] tablet, 6 Refills, Maintenance, 11/09/23 6:37:00 EDT, [facility] #[id number], 163, cm, 09/22/23 9:43:00 EDT, Height, 66.4, kg, 08/08/23 13:18:00 EST, Dry Weight Start Date: 5/22/24 Status: Ordered pravastatin 20 mg oral tablet 20 mg, 1, tablet, By Mouth, Daily, # 30 tablet, Refills 6, Tot. Refills 6, Maintenance, 11/09/23 6:37:00 EDT, Route to Pharmacy Electronically, [facility] #[id number], Partial fill upon patient request if the [...] Personnel Name: Nader DESIR, Yolanda Orellana Position: [facility] PCO Associate Professional Member Role: PCP Address: Address: [address] [place] [address]- Care Team Related Persons Name: YING LUIS Address: home [address] [place] [address] Name: FABRIZIO LUIS Address: home [address] [place] [address]
--- OUTSIDE RECORDS SUMMARY | 2024-04-06 17:37 | XMS_ITS | Continuity of Care Document ---
Author Organization [facility] John reece Address [address] [place] [address] [address] [place] [address]- Care Team Providers Care Senior Engineering Manager Name Role Phone Nader DESIR, Yolanda Orellana Primary Care Physician Encounter [facility] Date(s): 02/08/23 - 02/15/23 [facility] [address] [place] [address]- Attending Physician: Fred Farnsworth MD Referring Physician: Yolanad Doe NP Allergies, Adverse Reactions, Alerts No Known Medication Allergies Immunizations Given and Recorded Vaccine Date Status Refusal Reason SARS-CoV-2 (COVID-19) mRNA-1273 vaccine 05/21/21 R ecorded SARS-CoV-2 (COVID-19) mRNA-1273 vaccine 11/03/20 R ecorded SARS-CoV-2 (COVID-19) mRNA-1273 vaccine 10/06/20 R ecorded tetanus/diphtheria/pertussis, acel(Tdap) 09/02/16 Given Medications No Known Medications Problem List Condition Confirmation Course Effective Dates Status H ealth Status Informant Allergic reaction to food Confirmed Active Hyperlipidemia Confirmed Active Tobacco abuse Confirmed Active Vital Signs Most recent to oldest [Reference Range]: 1 Height 162 cm (02/08/23 1:07 PM) Social History Social History Type Response Smoking Status Current every day riana zhong entered on: 05/11/16 Sex Patient Care team information Care Team Personnel Name: Yolanda Doe NP Position: S PCO Associate Professional Member Role: PCP Address: Address: [address] [place] [address] [place] [address]- Care Team Related Persons Name: YING LUIS Address: home [address] [place] [address] Name: FABRIZIO LUIS Address: home [address] [place] [address]
--- OUTSIDE RECORDS SUMMARY | 2024-04-06 17:37 | XMS_ITS | Continuity of Care Document ---
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 Gold Wheel Name Role Phone Nader DESIR, Yolanda Orellana Primary Care Physician Encounter [facility] [place] Date(s): 04/12/23 - 05/12/23 [facility] [address] [place] [address]- Attending Physician: Ivone Ge Admitting Physician: AdmIvone fontaine Referring Physician: Admtr, Ar8 Allergies, Adverse Reactions, [...] tablet, 6 Refills, Maintenance, 04/15/23 7:52:00 EDT, [facility] #[id number], 162, cm, 04/14/23 13:29:00 EDT, Height, 65.5, kg, 03/28/23 8:15:00 EDT, Dry Weight Start Date: 04/15/23 Status: Ordered rosuvastatin 5 mg oral tablet 1 tablet, By Mouth, Daily, # 30 tablet, 6 Refills, Maintenance, 05/10/23 14:04:00 EST, [facility] #[id number], 161, cm, 05/10/23 9:02:00 EST, Height, 65.3, [...] Personnel Name: Nader DESIR, Yolanda Orellana Position: [facility] PCO Associate Professional Member Role: PCP Address: Address: [address] [place] [address]- Care Team Related Persons Name: YING LUIS Address: home [address] [place] [address] Name: FABRIZIO LUIS Address: home [address] [place] [address]
--- OUTSIDE RECORDS SUMMARY | 2024-04-06 17:37 | XMS_ITS | Continuity of Care Document ---
Author Organization [facility] John reece Address [address] [place] [address] Dr [address] [place] [address]- Care Team Providers Care Platinumsmith Name Role Phone Nader DESIR, Yolanda Orellana Primary Care Physician Encounter [facility] [place] Date(s): 04/18/23 - 04/25/23 [facility] [address] [place] [address]- Attending Physician: Not on Staff, Attending MD [...] tablet, 6 Refills, Maintenance, 04/15/23 7:52:00 EDT, [facility] #[id number], 162, cm, 04/14/23 13:29:00 EDT, Height, 65.5, kg, 03/28/23 8:15:00 EDT, Dry Weight Start Date: 04/15/23 Status: Ordered Crestor 5 mg oral tablet 1 tablet = 5 mg, By Mouth, Daily, # 30 tablet, 1 Refills, Maintenance, 03/10/23 7:39:00 EDT, [facility] #[id number], Partial fill upon patient request if the prescription is for a schedule II opioid drug., 162, cm, 03/10/23 7:32:00 EDT, Height Start Date: 03/10/23 Status: Ordered sulfamethoxazole-trimethoprim 800 mg-160 mg oral tablet 1 tablet, By Mouth, 2 times a day, for 10 days, # 20 tablet, 0 Refills, Acute 04/28/23 13:01:00 EST, 04/18/23 13:01:00 EDT, Tablet, [facility] #[id number], Partial fill upon patient request if the [...] oldest [Reference Range]: 1 Height 162 cm (04/18/23 12:05 PM) Weight 65 kg (04/18/23 12:05 PM) Body Mass Index [18.5-24.99 kg/m2] 24.77 kg/m2 (04/18/23 12:05 PM) Weight Obtained Via Standing scale (04/18/23 12:05 PM) Social History Social History Type Response Smoking Status Former smoker, quit more than 30 days ago; Other: quit 07/2022; entered on: 04/11/23 Sex Patient Care team information Care Team Personnel Name: Nader DESIR, Yolanda Orellana Position: [facility] PCO Associate Professional Member Role: PCP Address: Address: [address] [place] [address]- Care Team Related Persons Name: YING LUIS Address: home [address] [place] [address] Name: FABRIZIO LUIS Address: home [address] [place] [address]
--- OUTSIDE RECORDS SUMMARY | 2024-04-06 17:37 | XMS_ITS | Continuity of Care Document ---
Author Organization [facility] John reece Address [address] [place] [address] [address] [place] [address]- Care Team Providers Care Sign Builder Supervisor Name Role Phone Nader DESIR, Yolanda Orellana Primary Care Physician [phone] Encounter [facility] Date(s): 09/22/23 - 10/22/23 [facility] [address] [place] [id number] Attending Physician: Admtr, Ar8 Admitting Physician: Admtr, [...] tablet, 6 Refills, Maintenance, 04/15/23 7:52:00 EDT, [facility] #[id number], 162, cm, 04/14/23 13:29:00 EDT, Height, 65.5, kg, 03/28/23 8:15:00 EDT, Dry Weight Start Date: 04/15/23 Status: Ordered pravastatin 20 mg oral tablet 20 mg, 1, tablet, By Mouth, Daily, # 30 tablet, Refills 6, Tot. Refills 6, Maintenance, 06/30/23 7:40:00 EST, Route to Pharmacy Electronically, [facility] #[id number], Partial fill upon patient request if the [...] Professional Member Role: PCP Address: Address: [address] [place] [address]- Care Team Related Persons Name: YING LUIS Address: [address] [place] [address] Name: FABRIZIO LUIS Address: home [address] [place] [address]
--- OUTSIDE RECORDS SUMMARY | 2024-04-06 17:37 | XMS_ITS | Continuity of Care Document ---
Author Organization [facility] reece Address [address] [place] [address] [address] [place] [address]- Care Team Providers Care Hand Cigar Maker Name Role Phone Nader DESIR, Yolanda Orellana Primary Care Physician [place] [facility] [place](s): 02/08/23 - 03/10/23 [facility] [address] [place], [place] [address] Attending Physician: Admtr, [id number] Admitting Physician: Admtr, Ar8 Referring Physician: Admtr, [...] 03/10/23 7:36:00 EDT, Route to Pharmacy Electronically, [facility] #[id number], Partial fill upon patient request if the prescription is for a schedule II opio... Start Date: 03/10/23 Status: Ordered Crestor 5 mg oral tablet 1 tablet = 5 mg, By Mouth, Daily, # 30 tablet, 1 Refills, Maintenance, 03/10/23 7:39:00 EDT, [facility] #[id number], Partial fill upon patient request if the [...] Personnel Name: Nader DESIR, Yolanda Orellana Position: [facility] PCO Associate Professional Member Role: PCP Address: Address: [address] [place] [address]- Care Team Related Persons Name: YING LUIS Address: home [address] [place] [address] Name: FABRIZIO LUIS Address: home [address] [place] [address]
--- OUTSIDE RECORDS SUMMARY | 2024-04-06 17:37 | XMS_ITS | Continuity of Care Document ---
Author Organization [facility] Cody Nj lt Address [address] [place] [address]- Care Team Providers Care Mold Mover Name Role Phone Nader DESIR, Yolanda Orellana Primary Care Physician [place] [facility] [place] Date(s): 03/09/23 - 04/08/23 [facility] Adult [address] [place] [address]- Allergies, Adverse Reactions, Alerts No Known Medication [...] 03/10/23 7:36:00 EDT, Route to Pharmacy Electronically, [facility] #[id number], Partial fill upon patient request if the prescription is for a schedule II opio... Start Date: 03/10/23 Status: Ordered Crestor 5 mg oral tablet 1 tablet = 5 mg, By Mouth, Daily, # 30 tablet, 1 Refills, Maintenance, 03/10/23 7:39:00 EDT, [facility] #[id number], Partial fill upon patient request if the [...] Professional Member Role: PCP Address: Address: [address] [place] [address]- [place] Care Team Related Persons Name: YING LUIS Address: home [address] [place] [address] Name: FABRIZIO LUIS Address: home [address] [place] [address]
--- OUTSIDE RECORDS SUMMARY | 2024-04-06 17:37 | XMS_ITS | Continuity of Care Document ---
Author Organization [facility] ter Address [address] [place] [phone]- Care Team Providers [employer] Sales Name Role Phone Nader DESIR, Yolanda Orellana Primary Care Physician Encounter [facility] Date(s): 08/08/23 - 08/08/[address] [id number] Discharge Disposition: A-D/C Home Attending Physician: Fred Farnsworth MD Admitting Physician: Fred Farnsworth MD Referring Physician: Fred Farnsworth MD Allergies, Adverse Reactions, [...] 08/08/23 16:16:00 EST, Route to Pharmacy Electronically, [facility] Start Date: 08/08/23 Stop Date: 3/11/24 Status: Ordered amLODIPine 5 mg oral tablet 1 tablet, By Mouth, Daily, # 30 tablet, 6 Refills, Maintenance, 04/15/23 7:52:00 EDT, [facility] #[id number], 162, cm, 04/14/23 13:29:00 EDT, Height, 65.5, kg, 03/28/23 8:15:00 EDT, Dry Weight Start Date: 04/15/23 Status: Ordered cephalexin monohydrate 500 mg oral tablet 1 tablet = 500 mg, By Mouth, Every 6 hours, for 5 days, # 20 tablet, 0 Refills, Acute 08/13/23 16:18:00 EST, 08/08/23 16:18:00 EST, Tablet, [facility] #[id number], Partial fill upon patient request if the prescription is for a schedule II opioid... Start Date: 08/08/23 Stop Date: 08/13/23 Status: Ordered ibuprofen 600 mg oral tablet 600 mg, 1, tablet, By Mouth, Every 6 hours, PRN, for 7 days, not to exceed 3200 mg/day with food ormilk, # 50 tablet, Refills 2, Tot. Refills 2, Acute 08/29/23 16:16:00 EDT, for pain, 08/08/23 16:16:00 EST, Route to Pharmacy Electronically, [facility] Start Date: 08/08/23 Stop Date: 08/29/23 Status: Ordered oxyCODONE 5 mg oral tablet 5 mg, 1, tablet, By Mouth, Every 6 hours, PRN, for 3 days, Do not drive on this medication., # 15 tablet, Refills 0, Tot. Refills 0, Acute 08/11/23 16:17:00 EST, as needed for pain, 08/08/23 16:17:00EST, Route to Pharmacy Electronically, [facility] Start Date: 08/08/23 Stop Date: 08/11/23 Status: Ordered Oxycodone 5mg Oral Tablet (PACU ONLY) 5 mg, Tablet, By Mouth, Once, in PACU ONLY, PRN for Pain , Moderate, Routine, 08/08/23 17:48:00 EST Start Date: 08/08/23 Stop Date: 08/08/23 Status: Completed pravastatin 20 mg oral tablet 20 mg, 1, tablet, By Mouth, Daily, # 30 tablet, Refills 6, Tot. Refills 6, Maintenance, 06/30/23 7:40:00 EST, Route to Pharmacy Electronically, [facility][id number], Partial fill upon patient request if the prescription is for a schedule II opi... Start Date: 06/30/23 Status: Ordered Valium 2 mg oral tablet 2 mg, 1, tablet, By Mouth, Every 6 hours, PRN, for 3 days, Do not drive on this medication., # 15 tablet, Refills 0, Tot. Refills 0, Acute 08/11/23 16:17:00 EST, Spasm, 08/08/23 16:17:00 EST, Route to Pharmacy Electronically, [id number]... 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 Tobacco abuse Confirmed Active Vital Signs Most recent to oldest [Reference Range]: 1 2 3 Height 163 cm (08/08/23 1:18 PM) 163 cm (07/27/23 5:56 PM) Weight 64.7 kg (08/08/23 1:18 PM) 64.7 kg (07/27/23 5:56 PM) Oxygen Saturation [94-100 %] 99 % (08/08/23 7:30 PM) 94 % (08/08/23 7:15 PM) 97 % (08/08/23 7:00 PM) Pulse Rate [55-90 bpm] 56 bpm (08/08/23 1:18 PM) Body Mass Index [18.5-24.99 kg/m2] 24.35 kg/m2 (08/08/23 1:18 PM) 24.35 kg/m2 (07/27/23 5:56 PM) Blood Pressure [90-138/55-84 mm Hg] 114/64mm Hg (08/08/23 7:15 PM) 117/74mm Hg (08/08/23 7:00 PM) 120/66mm Hg (08/08/23 6:45 PM) Respiratory Rate [16-30 br/min] 15 br/min *L* (08/08/23 7:15 PM) 18 br/min (08/08/23 7:00 PM) 16 br/min (08/08/23 6:58 PM) Temperature [96.8-100.4 DegF] 98.4 DegF (08/08/23 7:15 PM) 97.9 DegF (08/08/23 6:15 PM) 97.6 DegF (08/08/23 1:18 PM) Liters per Minute 2 L/min (08/08/23 6:30 PM) 8 L/min (08/08/23 6:15 PM) Mode of Delivery (Oxygen) Room air (08/08/23 7:57 PM) Room air (08/08/23 7:15 PM) Room air (08/08/23 7:00 PM) Blood pressure sites Arm, left (08/08/23 6:15 PM) Arm, left (08/08/23 1:18 PM) Temperature Route Temporal (08/08/23 7:15 PM) Temporal (08/08/23 6:15 PM) Temporal (08/08/23 1:18 PM) Dry Weight 66.4 kg (08/08/23 1:18 PM) 64.7 kg (07/27/23 5:56 PM) Weight Obtained Via Patient/family state d (07/27/23 5:56 PM) Dry Weight Obtained Via Standing scale (08/08/23 1:18 PM) Patient/family stated (07/27/23 5:56 PM) Social History Social History Type Response Smoking Status Former smoker, quit more than 30 days ago; Other: quit 07/2022; entered on: 04/11/23 Sex Note * Eva Yeager RN: PERFORM Event Display: Discharge/Transfer Note Hospital Authored Date: [id number] Nursing Discharge Note Entered On: 08/08/2023 19:46 EST Performed On: 08/08/2023 19:46 EST by Eva Yeager RN Nursing Discharge Note 2 Discharge Time : 08/08/2023 19:57 EST Eva Yeager RN - 08/08/2023 19:59 EST Discharge Level of Care at Discharge : Home/[facility] Care Patient Left Unit Via : Wheelchair Patient Accompanied Off Unit with : Responsible adult DC Instructions Provided & Signed by Pt : Yes Patient Understands D/C Instructions : Yes Verbalized Understanding of D/C Plan By : Family, Patient Patient Instructions Discharge Signed : Yes Did Pt have Specialty Bed or Wound Vac : No Eva Yeager RN - 08/08/2023 19:46 EST * Eva Yeager RN: PERFORM Event Display: Patient Education/Instruction Authored Date: Inpatient Adult Discharge Instructions. [address] [address] Name: ESTHER HA : 1960?? Visit: 08/08/2023 12:44?? Current Date: 08/08/2023 19:14 ?? Account: [id number]?? Inpatient Adult Discharge Instructions We would like to thank you for allowing us to assist you with your healthcare needs. The following includes patient education materials and information regarding your injury/illness. Our entire staffstrives to provide an excellent experience for our patients and their families. PLEASE ENSURE YOU FOLLOW-UP PER THE INSTRUCTIONS BELOW! ?? YOUR OPINION IS IMPORTANT TO US! Please complete the survey you may receive by mail or email. Your feedback will be used to make improvements to the healthcare experiences of our patients and their families. Surveys are administered by [employer] ?? If further treatment with your primary care physician or another doctor is recommended, it is important for you to keep the appointment. Call your primary care physician or return to the Emergency Department immediately if your condition worsens, fails to improve, or new symptoms develop. If you need to find a doctor, you can call [facility] for a referral at [phone] or toll free at [phone] or log in to [email or web address].. ?? [facility], in keeping with [facility] guidance, no longer requires face masks [...] medical provider or home test kit. ?? You can view and manage your care through the patient portal or by using a health care zaida of your choosing. [employer] is a website that allows you to securely view your medical information including your hospital discharge summary, office visit summaries, medications and follow-up visits. You can also request appointments, renew medications, and request access to your medical information using a health care zaida of your choosing, or just ask a question. You can enroll at [email or web address] or register during your next office visit. You have been discharged from [facility], Patient Care Unit: [facility]??. If you have any questions regarding these instructions, including results of studies pending, afteryou leave, please call us and we will be happy to assist you 10/01. [facility] Nursing Unit Direct Phone Number, for 10/01 contact and results of studies pending [facility] [address] [place] [address] Your Care Team Attending Physician Fred Farnsworth MD?? Consulting Providers Fred Farnsworth MD?? Discharging Providers Brandie Pretty MD Tests Performed Below is a partial list of the tests performed during your hospitalization. You may have had other tests and procedures not included in this list. Please discuss all test results with your provider. No tests performed during this visit.?? Primary Care Provider Nader DESIR, Yolanda Orellana? Discharge Vitals Temperature: 97.9 DegF Height: 163 cm Pulse Rate: 56 bpm Weight: 64.7 kg Respiratory Rate: 18 br/min Body Mass Index: 24.35 kg/m2 Systolic Blood Pressure: 117 mm Hg Body surface area: 1.71 Diastolic Blood Pressure: 74 mm Hg ?? Oxygen Saturation: 97 % ?? Studies Pending All studies ordered during this hospital stay have been completed unless listed below. Please discuss all pending results with your provider listed above in these instructions. ?? No incomplete studies found?? What to do next Instructions From Your Doctor ?? Orders?? Unit Discharge Criteria Met, ??08/08/23 18:19:00 EST?? Prescriptions??, ??08/08/23 18:19:00 EST?? Instructions from your Care Team Please see??[facility] instruction sheet for Second Stage Reconstructions for details.?? Scheduled Follow-Up Appointments 2023 10:20 AM EST ?? With: Nicole CLARK, Aleah Dia Where: [facility] [address] [place] [address]- Status: Pending Tuesday 8:15 AM EDT ?? Where: [facility] [address] [place] [address]- Status: Pending You Need to Schedule the Following Appointments Follow Up with??Fred Farnsworth Why: Call for follow up and with any concerns Where: [address] [place] [address], [address] [facility] [place] [address]- Business (1) Follow Up with??Yolanda Doe When:??In 0 days Where: [address] [facility] [place] [address]- Business (1) Discharge Medications ESTHER HA :1960 Visit Date:08/08/2023 Medications: Please continue your medications until treatment is completed or stopped by your provider. Medications not listed below should be discontinued. Discuss any questions related to medications with your provider. What How Much When Instructions Next Dose New Acetaminophen (acetaminophen 325 mg oral tablet) 2 tab(s) Oral Every 6 hours as needed for as needed for fever Duration: 7 Days Refills: 2 not to exceed 4000 mg/ day ?? Pickup at [facility] #[id number] 115am as needed New Cephalexin (cephalexin monohydrate 500 mg oral tablet) 1 tab(s) Oral Every 6 hours Duration: 5 Days Pickup at [facility] #[id number] tonight New Diazepam (Valium 2 mg oral tablet) 1 tab(s) Oral Every 6 hours as needed for Spasm Duration: [address] on this medication. ?? Pickup at [facility] #[id number] as needed New Ibuprofen (ibuprofen 600 mg oral tablet) 1 tab(s) Oral Every 6 hours as needed for for pain Duration: 7 Days Refills: 2 not to exceed 3200 mg/ day with food or milk ?? Pickup at [facility] #[id number] as needed New Oxycodone (oxyCODONE 5 mg oral tablet) 1 tab(s) Oral Every 6 hours as needed for as needed for pain Duration: [address] on this medication. ?? Pickup at [facility] #[id number] 1 am as needed Unchanged Amlodipine (amLODIPine 5 mg oral tablet) 1 tab(s) Oral Daily resume Unchanged Pravastatin (pravastatin 20 mg oral tablet) 1 tab(s) Oral Daily resume Pharmacy Information [facility] #[id number]: [address] [place] [address] [phone] Prescription Given During Visit Acetaminophen (acetaminophen 325 mg oral tablet) - 2 tablet = 650 mg, By Mouth, Every 6 hours, # 50tablet, 2 Refills, not to exceed 4000 mg/day, [facility] #[id number], [address] [place] [phone]?? Cephalexin (cephalexin monohydrate 500 mg oral tablet) - 1 tablet = 500 mg, By Mouth, Every 6 hours, # 20 tablet, 0 Refills, [facility] #[id number], [address] [place] [phone]?? Diazepam (Valium 2 mg oral tablet) - 1 tablet = 2 mg, By Mouth, Every 6 hours, # 15 tablet, 0 Refills, Do not drive on this medication., [facility] #[id number], [address] [place] [phone]?? Ibuprofen (ibuprofen 600 mg oral tablet) - 1 tablet = 600 mg, By Mouth, Every 6 hours, # 50 tablet,2 Refills, not to exceed 3200 mg/daywith food or milk, [facility] #[id number], [address] [place] [phone]?? Oxycodone (oxyCODONE 5 mg oral tablet) - 1 tablet = 5 mg, By Mouth, Every 6 hours, # 15 tablet, 0 Refills, Do not drive on this medication., [facility][id number], [address] [place] [phone]?? Laboratory Results Below is a partial list of the most recent Laboratory test results done prior to this discharge. You may have had other tests and procedures not included in this list. Please discuss all test resultswith your provider. Allergies (NKA means No Known Allergies) No Known Medication Allergies Other Food Allergy??(swelling face) Problems Active Problems??(5) Allergic reaction to food?? Ductal carcinoma in situ of left breast?? Hyperlipidemia?? Hypertension?? Tobacco abuse?? Education Materials Below is the list of Educational Leaflet Providered with your Discharge Instructions. [facility] [facility] Patient Education - Surgery Voiding Instructions?? [employer] Patient Education - Surgery Medical Daystay Surgical Overnight Discharge Instructions?? [employer] Patient Education - ??NSAID Analgesic Schedule?? Valuables and Belongings I fully understand and agree that [facility] accepts no responsibility for all my personal property including clothing, toilet articles, radios, jewelry, dentures, hearing aids, rings, money, or any other property that is in my possession or is brought to me after admission. I understand certain valuables may be placed in a hospital safe for a short period of time. I understand that the hospital is not liable for loss or damage due to accident, fire, or other natural occurrence while said property is in the safe. I accept full responsibility for any personal property that I keep with me, and will not hold the hospital responsible in case of loss or disappearance. I acknowledge that i have been encouraged to send valuables and belongings home. ?? Review of Valuable and Belonging List: With patient Date for Pt to Sign Valuables/Belongings: 08/08/23 13:18:00 ?? Valuables & Belongings ?? Clothes Electronic devices Jewelry Monetary Items Personal devices Miscellaneous Medications (Valuables) Valuables at Bedside Jacket, Pants, Shirt, Shoes Cell phone ?? Purse ? Valuables Sent Home ? Valuables Sent to Security ? Other Discharge Information ? Pulmonary Rehab Status?? Pulmonary Rehab Discharge Status?? Respiratory Rate: 18 br/min ? Common Emergency Awareness Tips IS IT A [...] are strongly encouraged to quit. Please call [facility] Onsite Link at [phone] or [phone] ([phone]) or log in to [email or web address] for referrals to smoking cessation programs. ?? 981 Suicide & Crisis Lifeline is available 10/01 if you or someone you know needs to find a reason to keep living. By calling 713 you'll be connected to a skilled, trained counselor at a crisis center in your area. INPATIENT DISCHARGE INSTRUCTIONS SIGNATURE PAGE ESTHER HA Location:[facility] Registration Date and Time:08/08/2023 12:44 EST Primary Care Physician: Yolanda Doe NP, Attending Physician: Daja PAIZ, Fred Hartmann, I ESTHER HA, have received the above patient education materials/instructions and have verbalized understanding. If ambulance or transport services are being used I further acknowledge being given a choice of service. ?? If you need to contact me, please call me at this number: [phone] . Patient/Cashier Ticket Selling Name: LELAND SANTANA Patient/Cashier Ticket Selling Signature: Relationship to Patient: self Witness Name/Signature:___Eva Yeager RN/ Date: 08/08/23 * Eva Yeager RN: PERFORM, SIGN, VERIFY Event Display: Patient Education Handout Authored Date: [id number] * Eva Yeager RN: PERFORM Event Display: Patient Education Leaflets Authored Date: [id number] Surgery Voiding Instructions ?? 305 Home Voiding Instructions ?? You should pass urine 6-8 hours after you are discharged from the [facility] Room. The amount should be about one cup of urine with each voiding. Be aware that you should feel like you are emptying your bladder completely. If you are passing very small amounts of urine frequently it could be over-flow and you may not be emptying your bladder. Things to try to encourage urination: Drink warm coffee or tea ??? unless your physician told you not to. Blow bubble through your straw into a small glass of water. Trickle lukewarm water onto your private area. Walk around as much as able. Let the faucet run slowly. Put your hand in warm water. Try to relax. If you have any concerns about urination, in the above time frame after your discharge, you should call your Doctor. ? * Eva Yeager RN: PERFORM Event Display: Patient Education Leaflets Authored Date: [id number] Surgery Medical Daystay Surgical Overnight Discharge Instructions ?? 295 Medical Daystay/Surgical Overnight Discharge Instructions ? Since your coordination and judgment may be altered by medication and/or anesthesia, a responsible adult must drive you home from the hospital. ? If you have received medication for pain or sedation while under our care, you should not drive, operate machinery, drink alcohol, or sign any legal documents for 24 hours.?? You should have someone with you at home tonight. ? Remain at home the day of discharge.?? You may be up and about unless otherwise instructed by your physician. ? You may resume your daily prescription medication schedule.?? Any depressant medication should be avoided for 24 hours unless otherwise instructed by your surgeon or anesthesiologist. ? Call your physician for a follow-up appointment.? If you experience unusual or severe pain not relied by your pain medication, excessive bleedingor drainage, persistent nausea and vomiting, excessive swelling or redness, foul odor from incisionsite or fever over 100.6F, you need to call your physician. ? A follow-up phone call by a nurse will be made the day after your procedure.?? If you have stayed with us over night, you will not be receiving a follow-up phone call. ? Nausea and vomiting are a common side effect of prescription pain medication.?? We recommend that pills are not taken on an empty stomach.?? While taking any prescription pain medication you should not drive or drink alcohol. ? * Eva Yeager RN: PERFORM Event Display: Patient Education Leaflets Authored Date: NSAID Analgesic Schedule ?? 604 NSAID???s Analgesic Schedule ?? Pain is the primary source of illness following your procedure and can include dehydration, difficulty and painful swallowing, and weight loss. These symptoms can lead to increased post-operative visits and hospital readmission. The best way to control pain is to take pain medications regularly. Your doctor has recommended both Ibuprofen and Acetaminophen (generic/store brands are okay, too). These can be picked up over the counter at your pharmacy of choice. Follow the instructions on the bottle to determine the proper dosage to give. The simplest way to take these medications it to rotate the two at 3-hour intervals. Here is a sample diagram. The time you take your medications may vary from this example. Do not give Ibuprofen more than every 6 hours or Acetaminophen every 4 hours. Do not give Acetaminophen if your doctor has given you a prescription that contains Acetaminophen. ? Patient Care team information Care Team Personnel Name: Nader DESIR, Yolanda Orellana Position: S PCO Associate Professional Member Role: PCP Address: Address: [address] [place] [address]- Care Team Related Persons Name: YING LUIS Address: home [address] [place] [address] Name: FABRIZIO LUIS Address: home [address] [place] [address]
--- OUTSIDE RECORDS SUMMARY | 2024-04-06 17:37 | XMS_ITS | Continuity of Care Document ---
Author Organization [facility] ancer Care Address [address] [place] [address]- Care Team Providers Care Department Editor Name Role Phone Nader DESIR, Yolanda Orellana Primary Care Physician [phone] Encounter [facility] Date(s): 03/03/23 - 04/02/23 [facility] Care [address] [place] [address]- Attending Physician: Ivone Ge Admitting Physician: Ivone Ge Referring Physician: AdmtrIvone Allergies, Adverse Reactions, Alerts [...] 03/28/23 14:44:00 EDT, Route to Pharmacy Electronically, [facility] #[id number], Partial fill upon patient request i... Start Date: 03/28/23 Stop Date: 04/05/23 Status: Ordered amLODIPine 5 mg oral tablet 5 mg, 1, tablet, By Mouth, Daily, # 30 tablet, Refills 0, Tot. Refills 0, Maintenance, 03/10/23 7:36:00 EDT, Route to Pharmacy Electronically, [facility] #[id number], Partial fill upon patient request if the prescription is for a schedule II opio... Start Date: 03/10/23 Status: Ordered cephalexin monohydrate 500 mg oral capsule 1 capsule = 500 mg, By Mouth, 4 times a day, for 7 days, # 28 capsule, 0 Refills, Acute 04/04/23 14:44:00 EDT, 03/28/23 14:44:00 EDT, Capsule, [facility] #[id number], Partial fill upon patient request if the prescription is for a schedule II opio... Start Date: 03/28/23 Stop Date: 04/04/23 Status: Ordered Crestor 5 mg oral tablet 1 tablet = 5 mg, By Mouth, Daily, # 30 tablet, 1 Refills, Maintenance, 03/10/23 7:39:00 EDT, [facility] #[id number], Partial fill upon patient request if the prescription is for a schedule II opioid drug., 162, cm, 03/10/23 7:32:00 EDT, Height Start Date: 03/10/23 Status: Ordered diazepam 2 mg oral tablet 2 mg, By Mouth, Every 6 hours, PRN, # 20 tablet, Refills 0, Tot. Refills 0, Acute 04/03/23 14:46:00EDT, Spasm, 03/28/23 14:44:00 EDT, Route to Pharmacy Electronically, [facility] #[id number], Partial fill upon patient request if the prescription... Start Date: 03/28/23 Stop Date: 04/03/23 Status: Ordered ibuprofen 600 mg oral tablet 600 mg, By Mouth, Every 6 hours, not to exceed 3200 mg/day, # 50 tablet, Refills 0, Tot. Refills 0,Acute 04/06/23 14:45:00 EDT, 03/28/23 14:44:00 EDT, Route to Pharmacy Electronically, [facility] #[id number], Partial fill upon patient request if... Start Date: 03/28/23 Stop Date: 04/06/23 Status: Ordered oxyCODONE 5 mg oral tablet 5 mg, By Mouth, Every 6 hours, PRN, # 20 tablet, Refills 0, Tot. Refills 0, Acute 04/04/23 14:46:00EDT, Pain , Moderate, 03/28/23 14:44:00 EDT, Route to Pharmacy Electronically, [facility][id number], Partial fill upon patient request if the [...] Personnel Name: Nader DESIR, Yolanda Orellana Position: [facility] PCO Associate Professional Member Role: PCP Address: Address: [address] [place] [address]- Care Team Related Persons Name: YING LUIS Address: home [address] [place] [address] Name: FABRIZIO LUIS Address: home [address] [place] [address]
--- OUTSIDE RECORDS SUMMARY | 2024-04-06 17:37 | XMS_ITS | Continuity of Care Document ---
Author Organization [facility] ter Address [address] [place] [address]- Care Team Providers Care Laborer Airport Maintenance Name Role Phone Nader DESIR, Yolanda Orellana Primary Care Physician [phone] [place] [facility] [place] - 02/17/[address] [address] Attending Physician: Yolanda Doe NP Admitting Physician: Nader DESIR, Yolanda Orellana Referring Physician: Yolanda Doe NP Allergies, Adverse [...] Response Smoking Status Current every day sm oker entered on: 05/11/16 Sex Patient Care team information Care Team Personnel Name: Yolanda Doe NP Position: S PCO Associate Professional Member Role: PCP Address: Address: [address] [place] [address]- Care Team Related Persons Name: YING LUIS Address: home [address] [place] [address] Name: FABRIZIO LUIS Address: home [address] [place] [address]
--- OUTSIDE RECORDS SUMMARY | 2024-04-06 17:37 | XMS_ITS | Continuity of Care Document ---
Author Organization [facility] [place] Address [address] [place] [address]- Care Team Providers Care Packaging Line Attendant Name Role Phone Yolanda Doe NP Primary Care Physician Encounter [facility] [place] Date(s): 09/08/22 - 10/08/22 [facility] Adult [address] [place] [address]- Allergies, Adverse Reactions, Alerts No Known Medication [...] Professional Member Role: PCP Address: Address: [address] [place] [address] [place] [address]- Care Team Related Persons Name: YING LUIS Address: home [address] [place] [address] Name: FABRIZIO LUIS Address: home [address] [place] [address]
--- OUTSIDE RECORDS SUMMARY | 2024-04-06 17:37 | XMS_ITS | Continuity of Care Document ---
Author Organization [facility] [place] lt Address [address] [place] [address]- Care Team Providers Care Tufting Creeler Name Role Phone Nader DESIR, Yolanda Orellana Primary Care Physician [place] [facility] [place](s[place] 06/30/19 - 10/28/19 [facility] Adult [address] [place] [address]- [facility] Attending Physician: Nader DESIR, Yolanda Orellana Allergies, Adverse Reactions, Alerts No Known Medication Allergies Immunizations Given and Recorded Vaccine Date Status Refusal Reason tetanus/diphtheria/pertussis, acel(Tdap) 09/02/16 Given Medications atorvastatin 10 mg oral tablet 1 tablet = 10 mg, By Mouth, Daily, # 30 tablet, 6 Refills, Maintenance, Route to Pharmacy Electronically, [id number], [facility] [id number] Start Date: 09/26/18 Status: Ordered Problem List Condition Effective Dates Status Health Status Inform ant Allergic reaction to food(Confirmed) Active Hyperlipidemia(Confirmed) Active Tobacco abuse(Confirmed) Active Social History Social History Type Response Smoking Status Current every day riana zhong entered on: 05/11/16 Sex
--- OUTSIDE RECORDS SUMMARY | 2024-04-06 17:38 | XMS_ITS | Continuity of Care Document ---
Author Organization [facility] [place] Address [address] [place] [address]- Care Team Providers Care Administration Intern Name Role Phone Nader DESIR, Yolanda Orellana Primary Care Physician Encounter [facility] [place] Date(s): 06/30/23 - 08/31/23 [facility] Adult [address] [place] [address]- Attending Physician: Yolanda Doe NP Referring Physician: [...] tablet, 6 Refills, Maintenance, 04/15/23 7:52:00 EDT, [facility] #[id number], 162, cm, 04/14/23 13:29:00 EDT, Height, 65.5, kg, 03/28/23 8:15:00 EDT, Dry Weight Start Date: 04/15/23 Status: Ordered pravastatin 20 mg oral tablet 20 mg, 1, tablet, By Mouth, Daily, # 30 tablet, Refills 6, Tot. Refills 6, Maintenance, 06/30/23 7:40:00 EST, Route to Pharmacy Electronically, [facility] #[id number], Partial fill upon patient request if the [...] Associate Professional Member Role: PCP Address: Address: [address] [place] [address]- Care Team Related Persons Name: YING LUIS Address: home [address] [place] [address] Name: FABRIZIO LUIS Address: home [address] [place] [address]
--- OUTSIDE RECORDS SUMMARY | 2024-04-06 17:38 | XMS_ITS | Continuity of Care Document ---
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 Name Role Phone Nader DESIR, Yolanda Orellana Primary Care Physician [phone] [place] [facility] [place](s): 11/30/19 - 12/07/19 [facility] Adult [address] [place] [address]- [facility] Encounter Diagnosis Contact dermatitis(Discharge Diagnosis) - 11/30/19 Attending Physician: Not on Staff, Attending MD Allergies, Adverse Reactions, Alerts No Known Medication Allergies Immunizations Given and Recorded Vaccine Date Status Refusal Reason tetanus/diphtheria/pertussis, acel(Tdap) 09/02/16 Given Medications clobetasol 0.05% topical gel 1 application, Topically, 2 times a day, # 30 Gm, 1 Refills, Acute 12/14/19 10:36:00 EDT, 11/30/19 10:35:00 EDT, Gel, [facility] #[id number], 1 application Topically 2 times a day, 162, cm, 11/30/19 10:22:00 EDT, Height Start Date: 11/30/19 Stop Date: 12/14/19 Status: Ordered Problem List Condition Effective Dates Status Health Status Inform ant Allergic reaction to food(Confirmed) Active Hyperlipidemia(Confirmed) Active Tobacco abuse(Confirmed) Active Diagnosis Diagnosis Type Effective Dates Health Status Clinical Service Informant Contact dermatitis Discharge Diagnosis 11/30/19 Vital Signs Most recent to oldest [Reference Range]: 1 Height 162 cm (11/30/19 10:22 AM) Weight 60.4 kg (11/30/19 10:22 AM) Oxygen Saturation [94-100 %] 97 % (11/30/19 10:22 AM) Pulse Rate [55-90 bpm] 67 bpm (11/30/19 10:22 AM) Body Mass Index [18.5-24.99] 23.01 (11/30/19 10:22 AM) Blood Pressure [90-138/55-84 mm Hg] 122/ 62mm Hg (11/30/19 10:22 AM) Respiratory Rate [16-30 br/min] 12 br/mi n *L* (11/30/19 10:22 AM) Temperature [96.8-100.4 DegF] 98.2 DegF (11/30/19 10:22 AM) Blood pressure sites Arm, left (11/30/19 10:22 AM) Temperature Route Oral (11/30/19 10:22 AM) Weight Obtained Via Standing scale (11/30/19 10:22 AM) Social History Social History Type Response Smoking Status Current every day riana zhong entered on: 05/11/16 Sex
--- OUTSIDE RECORDS SUMMARY | 2024-04-06 17:38 | XMS_ITS | Continuity of Care Document ---
Author Organization [facility] ter Address [address] [place] [address]- Care Team Providers Care Hospitality House Supervisor Name Role Phone Nader DESIR, Yolanda Orellana Primary Care Physician Encounter [facility] [place] Date(s): 03/28/23 - 03/28/[address] [id number] Discharge Disposition: A-D/C Home Attending Physician: [...] 03/28/23 14:44:00 EDT, Route to Pharmacy Electronically, [facility] #[id number], Partial fill upon patient request i... Start Date: 03/28/23 Stop Date: 04/05/23 Status: Ordered amLODIPine 5 mg oral tablet 5 mg, 1, tablet, By Mouth, Daily, # 30 tablet, Refills 0, Tot. Refills 0, Maintenance, 03/10/23 7:36:00 EDT, Route to Pharmacy Electronically, [facility] #[id number], Partial fill upon patient request if the prescription is for a schedule II opio... Start Date: 03/10/23 Status: Ordered cephalexin monohydrate 500 mg oral capsule 1 capsule = 500 mg, By Mouth, 4 times a day, for 7 days, # 28 capsule, 0 Refills, Acute 04/04/23 14:44:00 EDT, 03/28/23 14:44:00 EDT, Capsule, [facility] #[id number], Partial fill upon patient request if the prescription is for a schedule II opio... Start Date: 03/28/23 Stop Date: 04/04/23 Status: Ordered Crestor 5 mg oral tablet 1 tablet = 5 mg, By Mouth, Daily, # 30 tablet, 1 Refills, Maintenance, 03/10/23 7:39:00 EDT, [facility] #[id number], Partial fill upon patient request if the prescription is for a schedule II opioid drug., 162, cm, 03/10/23 7:32:00 EDT, Height Start Date: 03/10/23 Status: Ordered diazepam 2 mg oral tablet 2 mg, By Mouth, Every 6 hours, PRN, # 20 tablet, Refills 0, Tot. Refills 0, Acute 04/03/23 14:46:00EDT, Spasm, 03/28/23 14:44:00 EDT, Route to Pharmacy Electronically, [facility] #[id number], Partial fill upon patient request if the prescription... Start Date: 03/28/23 Stop Date: 04/03/23 Status: Ordered ibuprofen 600 mg oral tablet 600 mg, By Mouth, Every 6 hours, not to exceed 3200 mg/day, # 50 tablet, Refills 0, Tot. Refills 0,Acute 04/06/23 14:45:00 EDT, 03/28/23 14:44:00 EDT, Route to Pharmacy Electronically, [facility] #[id number], Partial fill upon patient request if... Start Date: 03/28/23 Stop Date: 04/06/23 Status: Ordered oxyCODONE 5 mg oral tablet 5 mg, By Mouth, Every 6 hours, PRN, # 20 tablet, Refills 0, Tot. Refills 0, Acute 04/04/23 14:46:00EDT, Pain , Moderate, 03/28/23 14:44:00 EDT, Route to Pharmacy Electronically, [facility][id number], Partial fill upon patient request if the pr... 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 No prior studies are available. HISTORY: Left breast cancer. FINDINGS: Today's study was performed with the intradermal periareolar infusion of 520 uCi of technetium 99m labeled Lymphoseek in the cardinal locations around the areola. No imaging was performed. IMPRESSION: [place] lymph node labeling as described above. Thank you for allowing me to participate in the care of this patient. WSN: [id number] Ordering Physician: Eliza Powell Dictated By: Antwan Delatorre MD Dictated Date/Time: 03/28/23 10:09 a Reviewed By: Anwtan Delatorre MD Signed By: Antwan Delatorre MD Signed Date/Time: 03/28/23 10:09 am Transcribed By: DANO Transcribed Date/Time: 03/28/23 10:07 am Vital Signs Most recent to oldest [Reference Range]: 1 2 3 Height 162 cm (03/28/23 8:15 AM) 162 cm (03/24/23 3:07 PM) Weight 65.5 kg (03/28/23 8:15 AM) 64.9 kg (03/24/23 3:07 PM) Oxygen Saturation [94-100 %] 98 % (03/28/23 3:00 PM) 96 % (03/28/23 2:45 PM) 98 % (03/28/23 2:30 PM) Pulse Rate [55-90 bpm] 52 bpm *L* (03/28/23 8:15 AM) Body Mass Index [18.5-24.99 kg/m2] 24.96 kg/m2 (03/28/23 8:15 AM) 24.73 kg/m2 (03/24/23 3:07 PM) Blood Pressure [90-138/55-84 mm Hg] 124/62mm Hg (03/28/23 3:00 PM) 125/68mm Hg (03/28/23 2:45 PM) 125/55mm Hg (03/28/23 2:30 PM) Respiratory Rate [16-30 br/min] 19 br/min (03/28/23 3:02 PM) 14 br/min *L* (03/28/23 2:45 PM) 17 br/min (03/28/23 2:30 PM) Temperature [96.8-100.4 DegF] 97.1 DegF (03/28/23 2:15 PM) 97.3 DegF (03/28/23 8:15 AM) Liters per Minute 5 L/min (03/28/23 2:15 PM) Mode of Delivery (Oxygen) Room air (03/28/23 2:45 PM) Simple face mask (03/28/23 2:15 PM) Room air (03/28/23 8:15 AM) Temperature Route Temporal (03/28/23 2:15 PM) Temporal (03/28/23 8:15 AM) Dry Weight 65.5 kg (03/28/23 8:15 AM) 64.9 kg (03/24/23 3:07 PM) Weight Obtained Via Standing scale (03/28/23 8:15 AM) Patient/family stated (03/24/23 3:07 PM) Dry Weight Obtained Via Standing scale (03/28/23 8:15 AM) Patient/family stated (03/24/23 3:07 PM) Social History Social History Type Response Smoking Status Current every day riana zhong entered on: 05/11/16 Sex Note * Miriam Marin: PERFORM, MODIFY Event Display: Patient Education/Instruction Authored Date: Inpatient Adult Discharge Instructions [address] [address] Name: ESTHER HA : 1960 Visit: 03/28/2023 07:40:00 Current Date: 03/28/2023 15:09 Account: [id number] Inpatient Adult Discharge Instructions We would like [...] and their families. Surveys are administered by [employer] ?? If further treatment with your primary care physician or another doctor is recommended, it is important for you to keep the appointment. Call your primary care physician or return to the Emergency Department immediately if your condition worsens, fails to improve, or new symptoms develop. If you need to find a doctor, you can call [facility] Enlightened Lifestyle Link for a referral at [phone] or toll free at [phone] ([phone]) or log in to [email or web address].. ?? [facility], in keeping with [facility] guidance, no longer requires face masks [...] a health care zaida of your choosing. [employer] is a website that allows you to securely view your medical information including your hospital discharge summary, office visit summaries, medications and follow-up visits. You can also request appointments, renew medications, and request access to your medical information using a health care zaida of your choosing, or just ask a question. You can enroll at [email or web address] or register during your next office visit. You have been discharged from [facility], Patient Care Unit: [facility]. If you have any questions regarding these instructions after you leave, please call us and we will be happy to assist you. [facility] Your Care Team Attending Physician Fred Farnsworth MD Reason for Admission LEFT BREAST CA RECONSTRUCTION OVN CS Tests Performed Below is a partial list of the tests performed during your hospitalization. You may have had other tests and procedures not included in this list. Please discuss all test results with your provider. NM Identification/[place] Node Primary Care Provider Yolanda Doe NP Advance Directive Health Care Proxy on File Yes - Health Care Proxy Discharge Vitals Temperature: 97.1 DegF Height: 162 cm Pulse Rate:??52 bpm??Low Weight: 65.5 kg Respiratory Rate: 19 br/min Body Mass Index: 24.96 kg/m2 Systolic Blood Pressure: 124 mm Hg Body surface area: 1.72 Diastolic Blood Pressure: 62 mm Hg ?? Oxygen Saturation: 98 % ?? Studies Pending All tests and labs ordered during this hospital stay have been completed unless listed below. Please discuss all pending results with your provider listed above in these instructions. ?? No incomplete studies found What to do next Instructions From Your Doctor Discharge Orders Scheduled Follow-Up Appointments Tuesday 10:00 AM EDT ?? With: Fred Farnsworth MD Where: [facility] Status: Pending Tuesday 11:20 AM EDT ?? With: Cee Mims Where: [facility] Plastic Surgery [address] [place] [address]- Status: Pending 2022 1:20 PM EDT ?? With: Eliza Powell MD Where: [facility] [address] [place] [address]- Status: Pending Tuesday 11:20 AM EDT ?? With: Cee Mims Where: [facility] Plastic [address] [address]- Status: Pending Tuesday 10:20 AM EST ?? With: Cee Mims Where: [facility] Plastic [address] [address]- Status: Pending Tuesday 1:00 PM EST ?? With: Fred Farnsworth MD Where: [facility] Plastic Surgery [address] [place] [address]- Status: Pending Discharge Medications ESTHER HA :1960 Visit Date:03/28/2023 Medications: Please continue your medications until treatment is completed or stopped by your provider. Medications not listed below should be discontinued. Discuss any questions related to medications with your provider. What How Much When Instructions Next Dose New Acetaminophen (acetaminophen 325 mg oral tablet) 650 Milligram Oral Every 6 hours not to exceed 4000 mg/ day ?? Pickup at [facility] #[id number] 9pm New Cephalexin (cephalexin monohydrate 500 mg oral capsule) 1 capsule Oral 4 times a day Duration: 7 Days [id number] start this evening New Diazepam (diazepam 2 mg oral tablet) 2 Milligram Oral Every 6 hours as needed for Spasm [facility] anytime New Ibuprofen (ibuprofen 600 mg oral tablet) 600 Milligram Oral Every 6 hours not to exceed 3200 mg/ day ?? Pickup at [facility] #[id number] 6pm 12am New Oxycodone (oxyCODONE 5 mg oral tablet) 5 Milligram Oral Every 6 hours as needed for Pain , Moderate [id number] 9pm Unchanged Amlodipine (amLODIPine 5 mg oral tablet) 1 tab(s) Oral Daily Unchanged Rosuvastatin (Crestor 5 mg oral tablet) 1 tab(s) Oral Daily Pharmacy Information [facility] #[id number]: [address] [place], [place] [id number] [phone] Test Results Below is a partial list of [...] Educational Leaflet Providered with your Discharge Instructions. Surgery Medical Daystay Surgical Overnight Discharge Instructions?NSAID Analgesic Schedule?? Valuables and Belongings I fully understand and agree that [facility] accepts no responsibility for all my personal [...] patient Date for Pt to Sign Valuables/Belongings: 03/28/23 08:39:00 ?? Valuables & Belongings ?? Clothes Electronic devices Jewelry Monetary Items Personal devices Miscellaneous Medications (Valuables) Valuables at Bedside Pants, Shirt, Shoes, Undergarments ? Credit cards, Purse, Wallet ? Valuables Sent Home ? Valuables Sent to Security ? Other Discharge Information ? Pulmonary Rehab Status?? Pulmonary Rehab Discharge Status?? Respiratory Rate: 19 br/min ? Common Emergency Awareness Tips IS [...] are strongly encouraged to quit. Please call [facility] Enlightened Lifestyle Link at [phone] or [phone] ([phone]) or log in to [email or web address] for referrals to smoking cessation programs. ?? 140 Suicide & Crisis Lifeline is available 10/01 if you or someone you know needs to find a reason to keep living. By calling 400 you'll be connected to a skilled, trained counselor at a crisis center in your area. INPATIENT DISCHARGE INSTRUCTIONS SIGNATURE PAGE ESTHER HA Location:[facility] Registration Date and Time:03/28/2023 07:40 EDT Primary Care Physician: Yolanda Doe NP, Attending Physician: Daja PAIZ, Fred Hartmann, I ESTHER HA, have received the above patient education materials/instructions and have verbalized understanding. If ambulance or transport services are being used I further acknowledge being given a choice of service. ?? If you need to contact me, please call me at this number: . 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 ? * Miriam Marin: PERFORM Event Display: Patient Education Leaflets Authored Date: [id number] NSAID Analgesic Schedule ?? 604 NSAID???s Analgesic [...] Professional Member Role: PCP Address: Address: [address] [place] [address]- Care Team Related Persons Name: YING LUIS Address: home [address] [place] [address] Name: FABRIZIO LUIS Address: home [address] [place] [address]
[2024-04-06 17:45] LABS: MANUAL DIFF FLAG NO
[2024-04-06 17:57] LABS: INTERNATIONAL NORM RATIO 0.9 (0.9-1.1); Prothrombin Time 10.5 SEC (10.9-12.4)
[2024-04-06 17:59] LABS: Alanine Aminotransferase 19 U/L (0-31); Albumin Level 4.4 g/dL (3.5-5.0); Alkaline Phosphatase 47 U/L (39-117); Anion Gap 13 (12-20); Aspartate Amino Transferase 23 U/L (5-31); Bilirubin Total 0.3 mg/dL (0.0-1.0); Blood Urea Nitrogen 10 mg/dL (9-16); Calcium 10.1 mg/dL (8.4-10.2); Carbon Dioxide 28 mmol/L (22-29); Chloride 104 mmol/L (96-108); Creatinine Clr Calc Pharmacy 74.2; Estimated Glomerular Filt Rate > 60; Glucose Random 117 mg/dL (60-115); Potassium 4.1 mmol/L (3.3-5.1); Sodium 141 mmol/L (135-145); Total Protein 7.4 g/dL (6.5-8.0)
[2024-04-06 18:15] LABS: Basophils Percent Auto 0.7 % (0-2); Eosinophils Percent Auto 0.3 % (0-4); Hemoglobin 13.9 g/dl (12.0-16.0); Imm Gran Abs Auto 0.01 X10*3/uL (0.00-0.03); Imm Gran Pct Auto 0.2 % (0.0-0.4); Lymphocytes Absolute Auto 1.4 X10*3/uL (1.2-4.9); Lymphocytes Percent Auto 22.5 % (20-40); Mean Corpuscular HGB Conc 34.8 g/dl (31.0-35.0); Mean Corpuscular Hemoglobin 31.4 pg (27.0-33.0); Mean Corpuscular Volume 90.5 fL (80.0-98.0); Mean Platelet Volume 11.1 fL (9.4-12.3); Monocytes Absolute Auto 0.8 X10*3/uL (0.1-1.2); Monocytes Percent Auto 12.8 % (2-11); Neutrophils Absolute Auto 3.8 x10*3/uL (2.0-8.3); Neutrophils Percent Auto 63.5 % (45-73); Platelet Count 217 X10*3/uL (160-400); Red Blood Count 4.42 X10*6/uL (4.20-5.50); Red Cell Distribution Width 12.6 % (11.0-16.0)
--- NOTE | 2024-04-06 20:00 | PC.NURSE ---
pt from [facility], assume care of pt at this time, pt states, she is ready to go home, just waiting on results of US. Pt states, she will wait 15 more minutes and then she is leaving. Ceferino CLARK in room at this time
[2024-04-06 20:11] VITALS: BP 136/78; PULSE 72; RESP 18; TEMP 37.3; O2SAT 98
== END 2024-04-06 20:13 | disposition home or self-care (01) ==
PROVIDERS: Registered Nurse Emergency; Emergency Provider Emergency Medicine; PCP Nurse Practitioner Family
DX: M79.89 Other specified soft tissue disorders (principal); R60.0 Localized edema; M79.604 Pain in right leg
CPT/HCPCS: 36415; 80053; 85025; 85610; 93971; 99283; 99284